=== PATIENT | male | born 1990 | race Caucasian/White ===

== ENCOUNTER 2017-11-08 11:44 | Inpatient (IN) | payer OTHER ==
[~2017-11-08] VITALS: Ht 182.9 cm; Wt 77.1 kg
[~2017-11-08 11:44] MED LIST: CIPRO500 M1 PO; DILAUDID2 MG PO; DOXYCYCLINE HY100 M4 PO; DOXYCYCLINE100 M3 PO; FIORICET 325 MG1 TAB PO; HYDROMORPHONE HC2 MG PO; NAPROSYN500 M1 PO; PEPCID40 MG PO; PERMETHRIN60 GM TOP; VALTREX1000 MG PO; ZOFRAN 4 MG TABL4 MG PO
--- NOTE | 2017-11-08 12:15 | ED PSYCHIATRIC COMPLAINT ---
See Addendum History of Present Illness General Chief Complaint: ETOH/Drug Related Complaint Stated Complaint: ETOH DETOX Source: patient Exam Limitations: no limitations Vital Signs & Intake/Output Vital Signs & Intake/Output Vital Signs Date Time Temp Pulse Resp B/P B/P Pulse O2 O2 Flow FiO2 Mean Ox Delivery Rate 11/08 1831 97.6 101 18 138/79 11/08 1757 97.5 107 18 138/79 97 11/08 1426 121 18 130/78 11/08 1240 98.3 104 20 140/90 11/08 1153 97.2 91 20 145/94 98 Room Air Allergies Coded Allergies: No Known Allergies (07/17/17) Reconcile Medications No Known Home Medications Triage Note: PT REQUEST DETOX FROM ETOH. STATES LAST DRINK 20 MIN [employer]ONDENCE [employer]. DENIES SEIZURES WITH DETOX. STATES HE FEELS "KIND OF" SUICIDAL, DENIES PLAN. PT DENIES HI Triage Nurses Notes Reviewed? yes Onset: Abrupt Duration: day(s): HPI: 27-year-old male with a history of alcoholism comes in requesting detox. He's had some fleeting thoughts of suicide. He reports that previously in the past when he stopped drinking he's had hallucinations in bed shaking. He reports that he punched a wall last name. His girlfriend broke up with him. He denies owning weapons. He admits to some intermittent cocaine use at times. He drinks about a pint of vodka a day 10-12 beers. (Osmel Floyd) Past History Travel History Traveled to [place] past 21 day No Medical History Any Pertinent Medical History? see below for history Neurological: TIC DISORDER EENT: NONE Cardiovascular: NONE Respiratory: asthma Gastrointestinal: NONE Hepatic: NONE Renal: NONE Musculoskeletal: NONE Psychiatric: NONE Endocrine: NONE Blood Disorders: NONE Cancer(s): NONE LOCK TENDER/Reproductive: NONE History of MRSA: No History of VRE: No History of CDIFF: No Tetanus Vaccine: 05/07/17 Surgical History Surgical History: non-contributory Psychosocial History Who do you live with Mother Services at Home None What is your primary language Kyrgyz Tobacco Use: Current Daily Use Daily Tobacco Use Amount/Type: => 5 Cigarettes daily ETOH Use: heavy use Illicit Drug Use: denies illicit drug use Family History Hx Contributory? No (Osmel Floyd) Review of Systems Review of Systems Constitutional: Reports: no symptoms. EENTM: Reports: no symptoms. Respiratory: Reports: no symptoms. Cardiovascular: Reports: no symptoms. GI: Reports: no symptoms. Genitourinary: Reports: no symptoms. Musculoskeletal: Reports: no symptoms. Skin: Reports: no symptoms. Neurological/Psychological: Reports: see HPI. Hematologic/Endocrine: Reports: no symptoms. Immunologic/Allergic: Reports: no symptoms. All Other Systems: Reviewed and Negative (Osmel Floyd) Physical Exam Physical Exam General Appearance: well developed/nourished, mild distress, intoxicated Head: atraumatic Eyes: Bilateral: normal appearance. Ears, Nose, Throat: normal ENT inspection, hearing grossly normal Neck: normal inspection, supple Respiratory: no respiratory distress Cardiovascular: regular rate/rhythm Gastrointestinal: soft, non-tender Extremities: skin abrasion right hand Neurological/Psychiatric: awake Appearance/Memory/Insight: appropriate appearance Behavoir/Eye Contact/Speech: cooperative Thoughts/Hallucinations: no apparent hallucination Skin: intact, normal color, warm/dry SAD PERSONS SAD PERSONS Response Value Male Sex? yes 1 Age <19 or >45 years? yes 1 Depression/Hopelessness? yes 2 Excessive Ethanol/Drug Use? yes 1 Rational Thinking Loss? yes 2 Single//? yes 1 Total 8 SAD PERSONS Done? yes (Osmel Floyd) Progress Differential Diagnosis: dementia, drug intoxication, drug overdose, drug withdrawal, electrolyte abnormality, encephalitis, hypoglycemia, hypothyroidism Plan of Care: Orders Procedure Date/time Status Regular Diet 11/08 D Active Patient Data 11/08 192 Active Discharge Patient 11/[address] in observation 11/08 1621 Active Patient Data 11/08 1621 Active EKG 11/08 1214 Active ED CRISIS PSYCH CONSULT 11/08 1214 Active Continuous Observation Monitor 11/08 1202 Active CIWA 11/08 1202 Active URINE DRUGS OF ABUSE 11/08 1202 Complete ETHANOL 11/08 1202 Complete COMPREHENSIVE METABOLIC PANEL 11/08 1202 Complete CBC WITHOUT DIFFERENTIAL 11/08 1202 Complete Laboratory Tests 11/08/17 1220: Anion Gap 22 H, Estimated GFR > 60, BUN/Creatinine Ratio 12.2, Glucose 84, Calcium 10.1, Total Bilirubin 0.8, AST 30, ALT 24, Alkaline Phosphatase 85, Total Protein 8.4 H, Albumin 5.3 H, Globulin 3.1, Albumin/Globulin Ratio 1.7, CBC w Diff NO MAN DIFF REQ, RBC 5.64, MCV 87.8, MCH 30.1, MCHC 34.3, RDW 13.5, MPV 6.9 L, Gran % 75.5 H, Lymphocytes % 16.9 L, Monocytes % 3.2, Eosinophils % 3.9, Basophils % 0.5, Absolute Granulocytes 9.6 H, Absolute Lymphocytes 2.2, Absolute Monocytes 0.4, Absolute Eosinophils 0.5, Absolute Basophils 0.1, Serum Alcohol 295.0 11/08/17 1217: Urine Opiates Screen < 100.00, Methadone Screen < 40, Barbiturate Screen < 60, Ur Phencyclidine Scrn < 6.00, Amphetamines Screen < 100, U Benzodiazepines Scrn < 85, Urine Cocaine Screen > 1000 H, Urine Cannabis Screen 57.00 H Diagnostic Imaging: Viewed by Me: Radiology Read. Discussed w/RAD: Radiology Read. Radiology Impression: PATIENT: CHAVEZ GONZALEZ PRESENT AGE: 27 PATIENT ACCOUNT NO: [id number] : 91 LOCATION: [facility] ORDERING PHYSICIAN: Osmel ELIZONDO SERVICE DATE: 11/08/17 EXAM TYPE: RAD - XRY-HAND, RIGHT EXAMINATION: XR HAND, RIGHT CLINICAL INFORMATION: Right hand pain COMPARISON: 05/02/2008 TECHNIQUE: PA, lateral, and oblique views of the right hand. FINDINGS: The small avulsion fracture at the ulnar base of the 1st proximal phalanx has healed, with a residual bony protuberance. The bones and soft tissues are otherwise normal. No fracture. Alignment is anatomic. Joint spaces are maintained. No erosions or soft tissue calcifications. IMPRESSION: No acute abnormality. DICTATED BY: Jose Luis Marshall MD DATE/TIME DICTATED:1420 PERSONAL SHOPPER:ZARINA DATE/TIME TRANSCRIBED:11/08/171420 CONFIDENTIAL, DO NOT COPY WITHOUT APPROPRIATE AUTHORIZATION. <Electronically signed in Other Vendor System> SIGNED BY: Jose Luis Marshall MD 11/08/171425 Comments: 11/08/2017 6:26:59 PM Patient has a history of DTs from what he is describing. He meets criteria for inpatient detox. Waiting on case management to get approval from stay for admission. (Osmel Floyd) Departure Departure Disposition: STILL A PATIENT Condition: Stable Clinical Impression Primary Impression: Alcohol withdrawal Secondary Impressions: Depression, Suicidal ideation Referrals: Patient Has No Primary Care Dr (PCP/Family) Departure Forms: Customer Survey General Discharge Information Prescriptions: Current Visit Scripts No Known Home Medications (Osmel Floyd) ED Attending Observation Observation Discharge: I have reevaluated CHAVEZ GONZALEZ on 11/08/17 at 1926. The patient is: (): Stable for discharge ([x]): To be admitted to Nursing Floor (): To be placed in Observation on Nursing Floor (): For transfer to other facility The patient was being observed for [acute alcohol intoxication and the possibility of withdrawal/seizures/DTs] As a result of that observation, I have determined the patient requires admission for imminent alcohol withdrawal. (Vicky CONLEY,Sandip Benson)
[2017-11-08 12:28] LABS: ABSOLUTE BASOPHIL COUNT 0.1 /CUMM (0.0-0.2); ABSOLUTE EOSINOPHIL COUNT 0.5 /CUMM (0.0-0.7); ABSOLUTE GRANULOCYTE CT 9.6 /CUMM (1.4-6.5); ABSOLUTE LYMPH COUNT 2.2 /CUMM (1.2-3.4); ABSOLUTE MONOCYTE COUNT 0.4 /CUMM (0.10-0.60); BASOPHIL % 0.5 % (0.0-2.0); EOSINOPHIL % 3.9 % (0-5); GRANULOCYTE % 75.5 % (42.2-75.2); HEMATOCRIT 49.5 % (42-52); MEAN CORPUSCULAR HGB 30.1 PG (27.0-31.0); MEAN CORPUSCULAR HGB CONC 34.3 G/DL (33.0-37.0); MEAN CORPUSCULAR VOLUME 87.8 FL (80.0-94.0); MEAN PLATELET VOLUME 6.9 FL (7.4-10.4); PLATELET COUNT 356 /CUMM (130-400); RBC DISTRIBUTION WIDTH 13.5 % (11.5-14.5); RED BLOOD CELL CT 5.64 /CUMM (4.70-6.10); WHITE BLOOD CELL COUNT 12.7 /CUMM (4.8-10.8)
[2017-11-08 12:40] VITALS: BP 140/90
[2017-11-08 14:26] VITALS: BP 130/78
--- NOTE | 2017-11-08 14:26 | RADIOLOGY REPORT ---
EXAMINATION: XR HAND, RIGHT CLINICAL INFORMATION: Right hand pain COMPARISON: 05/02/2008 TECHNIQUE: PA, lateral, and oblique views of the right hand. FINDINGS: The small avulsion fracture at the ulnar base of the 1st proximal phalanx has healed, with a residual bony protuberance. The bones and soft tissues are otherwise normal. No fracture. Alignment is anatomic. Joint spaces are maintained. No erosions or soft tissue calcifications. IMPRESSION: No acute abnormality.
[2017-11-08 18:31] VITALS: BP 138/79
--- NOTE | 2017-11-08 19:28 | History & Physical ---
Adiel Fernández MD,[facility] 11/08/171926: General Information and HPI MD Statement: I have seen and personally examined CHAVEZ GONZALEZ and documented this H&P. The patient is a 27 year old M who presented with a patient stated chief complaint of [ALCOHOL DETOX]. Source of Information: patient Exam Limitations: no limitations History of Present Illness: patient is 27 y M with PMH of alcohol abuse, poly drug abuse(marijuana, cocaine and opioids), tourette syndrome and mild asthma presented to the ED requesting for alcohol detox. Patient noted he was dirnking more than for the last week he was drinking more usual and also had one binge drinking. He was drinknig 1 pint of vodka and 12 beers for the last several days with last drink this morning. He noted punching the wall (from anxiety and anger) but he denied any thoughts of harm or suicide (despite ED records, patient noted his was joking). , had admission to [facility] for detox but denied any alcohol related seizure or ICU admission. He started drinking at age 16, he reported occasional cocaine and marijuana use (last taken 2 days ago), but the night intravenous drug using. He noted he was tested for HIV and hepatitis 6-7 months ago which were negative. He reported mild headache, dizziness but no fall, blacking out from drinking ( last one 2-3 days ago, nausea but not vomiting, anxiety with associated mild chest discomfort and shortness of breathing, he also had loose bowel motion usually once a day. Patient was last admitted to [facility] for management of apectic menangitis in 06/2015 but didn't follow with ID or neurologist. Family history significant for alcohol abuse in several members. 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 Exam & Diagnostic Data Last 24 Hrs of Vital Signs/I&O Vital Signs Date Time Temp Pulse Resp B/P B/P Pulse O2 O2 Flow FiO2 Mean Ox Delivery Rate 11/08 1831 97.6 101 18 138/79 11/08 1757 97.5 107 18 138/79 97 11/08 1426 121 18 130/78 11/08 1240 98.3 104 20 140/90 11/08 1153 97.2 91 20 145/94 98 Room Air Intake & Output 11/08 1600 11/08 0800 11/08 0000 Intake Total Output Total Balance Patient 160 lb Weight Weight Reported by Patient Measurement Method Physical Exam General Appearance Alert, Oriented X3, Cooperative, No Acute Distress, anxious Skin skin lesion over right hand Skin Temp/Moisture Exam: Warm/Dry HEENT Atraumatic, EOMI, Mucous Membr. moist/pink Cardiovascular Normal S1, Normal S2, tachicardic Lungs Clear to Auscultation Abdomen Normal Bowel Sounds, Soft, mild umblical tenderness in deep palpation Neurological Normal Speech, Strength at 5/5 X4 Ext, Cranial Nerves 3-12 NL, tremor Extremities No Edema Last 24 Hrs of Labs/Tobias: Laboratory Tests 11/08/17 1220: Anion Gap 22 H, Estimated GFR > 60, BUN/Creatinine Ratio 12.2, Glucose 84, Calcium 10.1, Total Bilirubin 0.8, AST 30, ALT 24, Alkaline Phosphatase 85, Total Protein 8.4 H, Albumin 5.3 H, Globulin 3.1, Albumin/Globulin Ratio 1.7, Amylase 44, Lipase 108, CBC w Diff NO MAN DIFF REQ, RBC 5.64, MCV 87.8, MCH 30.1 , MCHC 34.3, RDW 13.5, MPV 6.9 L, Gran % 75.5 H, Lymphocytes % 16.9 L, Monocytes % 3.2, Eosinophils % 3.9, Basophils % 0.5, Absolute Granulocytes 9.6 H, Absolute Lymphocytes 2.2, Absolute Monocytes 0.4, Absolute Eosinophils 0.5, Absolute Basophils 0.1, Serum Alcohol 295.0 11/08/17 1217: Urine Opiates Screen < 100.00, Methadone Screen < 40, Barbiturate Screen < 60, Ur Phencyclidine Scrn < 6.00, Amphetamines Screen < 100, U Benzodiazepines Scrn < 85, Urine Cocaine Screen > 1000 H, Urine Cannabis Screen 57.00 H, Urine Color YEL, Urine Clarity CLEAR, Urine pH 6.0, Ur Specific [place] <= 1.005, Urine Protein NEG, Urine Ketones NEG, Urine Nitrite NEG, Urine Bilirubin NEG, Urine Urobilinogen 0.2, Ur Leukocyte Esterase NEG, Ur Microscopic SEDIMENT EXAMINED, Ur Epithelial Cells RARE, Urine Bacteria RARE H, Urine Hemoglobin TRACE-LYSED H, Urine Glucose NEG Assessment/Plan Assessment: 27 y M presented requesting for alcohol detox PMH: alcohol abuse, poly drug abuse(marijuana, cocaine and opioids), tourette syndrome and mild asthma VS, Ph Ex at admission: Not significant, no fever, BP 145/94, CT 94, RR 20 EKG: NSR, CT 100-110, axis normal, no ST T change compared to previous Labs at admission: WBC 12.7, otherwise insignificant, BEP insignificant, AG 22, bicarb 99, toxicology, cocaine and cannabis positive, serum alcohol 275 Imagings at admission: Hand Xray: negative Patient was admitted to GM floor for management of following conditions: Alcohol withdrawal Anion GAP Metabolic acidosis -Admit to general medicine floor -Vital sign -Ativan standing dose, Ativan IV CIWA protocol -Multivitamin, by mouth multivitamin, thiamine, folic acid -Psych and social work consult -Note sitter for now as patient denied suicidal ideation - lactic acid Abdominal pain Tenderness umbilical, pancreatitis less likely we will rule out -Lipase, -Urinalysis Anxiety -Psych consult in a.m. Smoking -Nicotine patch DVT prophylaxis, Lovenox, ALPS FC regular diet As Ranked By This Provider Problem List: 1. Alcohol intoxication 2. Alcohol withdrawal Core Measures/Misc (06/02) Acute Coronary Syndrome ACS Diagnosis: No Congestive Heart Failure Congestive Heart Failure Diagnosis No Cerebrovascular Accident CVA/TIA Diagnosis: No VTE (View Protocol) VTE Risk Factors Other No Mechanical VTE Prophylaxis d/t N/A MechProphylax Ordered No VTE Pharm Prophylaxis d/t NA PharmProphylax ordered Sepsis (View protocol) Sepsis Present: No Helder CONLEY, [facility] 11/08/17 2018: Attending MD Review Statement Attending Statement Attending MD Statement: examined this patient, discuss w/resident/PA/COMMERCIAL SHEET METAL FOREMAN, agreed w/resident/PA/COMMERCIAL SHEET METAL FOREMAN, reviewed images, amended to note Attending Assessment/Plan: 27 yo M with h/o Tourette syndrome, childhood asthma, severe anxiety, polysubstance abuse, alcohol dependence, [facility], no h/o withdrawal seizures or DT's, is here for alcohol detox. He has been drinking since age 16, and has been binge drinking for past 1 week. Drinks 1 pint of Vodka and 12 pack beers. Last drink this AM. He had passive SI and made some statements when he was intoxicated, but now denies SI or HI. He has punched into the wall due to his anger. He c/o chest discomfort and dyspnea associated with anxiety. Nausea+, no vomiting. Mid abdominal discomfort, diarrhea+, no urinary symptoms. No fever/ chills. Mild headache. He reports passing out when he is intoxicated. He was last admitted to [facility] 2014 for aseptic meningitis. Vitals stable except for mild tachycardia. Exam: Multiple bruises to knuckles of both hands, tremors+, dry mucous membranes, Abd: soft, mid abdominal discomfort. Labs: WBC 12.7, bicarb 19, AG 22. UA clear. Utox positive for cocaine and cannabis. Alcohol level 295. Hand Xray: small avulsion fracture at ulnar base of 1st proximal phalanx has healed with residual bony protuberance. EKG: sinus rhythm, peaked Twaves II, V3- 4 (old). Assessment and plan: 1. Alcohol withdrawal 2. Severe anxiety 3. Tobacco dependence 4. Leukocytosis likely reactive 5. Anion gap metabolic acidosis 2/2 alcohol use - Admit to General medicine - Fall precautions - CIWA protocol, IV ativan per CIWA - PO ativan 2 mg Q6 - Psych and Social work consult - Smoking cessation counseling, nicotine patch - Banana bag, PO MVI, thiamine, folic acid - Check lipase, urinalysis, lactic acid - No need for sitter, as patient denies suicidal ideation. DVT ppx Lovenox. Full code. Ayaan Coello MD 11/09/17 0208: Resident Review Statement Resident Statement: examined this patient, discussed with sports management internship, agreed with sports management internship, reviewed EMR data (avail), discussed with nursing, discussed with case mgmt, reviewed images, amended to note Other Findings: 27-year-old male with past medical history of alcohol abuse, last use this morning, polysubstance abuse including marijuana, cocaine, opiates, tourette syndrome, mild asthma, presented to the emergency department requesting for alcohol detoxification for enterically. According to the patient, he has been drinking alcohol for the past 1 week or more, including binge drinking, 1 pint of vodka and 12 beers for the last several days. He also mentioned that he was punching the wall, complained of "anxiety" and "anger" , but did not have any intention to harm himself or others. Patient has history of aseptic meningitis in 2015 but didn't follow-up with ID or neurologist. Patient denies having alcohol-related seizures or any history of delirium tremens. Physical examination, labs, imaging has shown above. Patient is being admitted in general medical floor for the management of following issues: # Alcohol abuse, alcohol detoxification, polysubstance abuse Patient's alcohol abuse, substance abuse appears to be a chronic problem, therefore the patient presented in the ED for voluntarily to stop using them. Patient received some doses of benzodiazepines in the emergency department. He will be managed for CIWA protocols, with benzodiazepines, will receive IV banana bag, one time dose of 200 mg of thiamine, and 100 mg daily to follow, 1 mg folic acid daily, and a multivitamin daily. Psychiatry and social work consult has been placed given his mental health issues, and his addiction issues. We are not continuing patient's safety monitor/continuous observation monitor for him as he repeatedly mentioned that he does not have any intention to harm himself or others to the admitting team. He also mentioned that she was intoxicated at the time of presentation to the ED, during which time he might have said something that he doesn't intend to do. In the morning, his CIWA scores needs to be assessed, and might need further tapering of his benzodiazepines. # Diet heart healthy diet #DVT prophylaxis subcutaneous enoxaparin #Full code.
--- NOTE | 2017-11-08 20:24 | Admission Certification ---
Admission Certification Certification Statement - As attending physician, I certify that at the time of - admission, based on clinical presentation, severity of - symptoms, need for further diagnostic testing and - therapeutic interventions, and risk of adverse outcomes - without in-hospital treatment, in my clinical assessment, - this patient requires an acute hospital stay for a minimum - of two nights or longer. I have also considered psychsocial - factors such as support system, advanced age, financial - issues, cognitive issues, and failed out-patient treatments, - past re-admission history, safety of patient, and lack of - compliance as applicable. Specific rationale supporting this admission is: Alcohol withdrawal, severe anxiety.
[2017-11-09] VITALS (7 sets, daily range): BP systolic 117–150; BP diastolic 68–90
--- NOTE | 2017-11-09 14:26 | Cons- Psychiatry ---
Psychiatric Consult Date of Consult: 11/09/17 Reason for Consult: Alcohol use disorder History of Present Illness: Cecil is a 27-year-old recently employed, unstably domiciled, single man with 10 year history of early onset severe alcohol use disorder including multiple previous inpatient substance use treatment stays who presented to [facility] ER yesterday evening requesting assistance for alcohol use disorder, including alcohol detox. Currently drinks daily, 1-3 pints every day on top of ~8 beers. Believes that over the past 10 years of drinking, has only had approximately 2 months of sobriety. 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 He is currently living with his mother and brother in [place], however, mom and brother are soon moving to [place] to a living situation which does not have room for him. This will again leave him homeless, and he is unable to identify possible living situation at this time. He also has recently undergone a breakup with a female relationship which he believes was due to a confrontation that they had while he was severely intoxicated recently. He denies using other substances when I asked him during my interview, though per notes he uses cocaine and marijuana occasionally. Reports that if he does not drink, he has severe generalized anxiety symptoms "I just get anxious and worried about everything ". He notes that he has previously been trialed on multiple medications "nothing seems to work. Nobody ever wants to give me benzodiazepines which do seem to work ". He is currently on probation, and states that his ordnance corps officer in [place] has arranged for him to be treated at the [facility] intensive outpatient program, which she is looking forward to doing. He also reports some depressed mood and demoralization, however denies anhedonia , denies neurovegetative symptoms, and denies suicidal or homicidal ideation. He also denies symptoms consistent with acute zeenat, psychosis, or post dramatic stress disorder. He is unable to describe his sleep, as he reports he essentially drinks to excess and passes out every night. Previous psychiatric treatment notable for trials of Prozac, Zoloft, and Paxil. Aside from these 3 medications however he has not trialed medications of different classes, including serotonin norepinephrine reuptake inhibitors, also has not trialed Wellbutrin, mirtazapine, has trialed Seroquel "during rehabilitation ", "it didn't really work for me ", and has never been trialed on mood stabilizers. No other history of neuroleptics. Has not trialed Vistaril. My discussion with him regarding these medications however was met with his response "I don't want to try anything that is as can be trial and error. I don 't get why people can't just put me on a benzo ". He was however receptive to the idea of starting naltrexone, and we had a lengthy discussion regarding the role of alcohol use disorder pharmacotherapy in the treatment of alcohol use disorder. Family history is strongly positive for alcohol use disorder in both parents as well as multiple siblings Allergies: Coded Allergies: No Known Allergies (07/17/17) Current Medications: Takes no outpatient psychotropic medication Past History Past Medical History Neurological: TIC DISORDER EENT: NONE Cardiovascular: NONE Respiratory: asthma Gastrointestinal: NONE Hepatic: NONE Renal: NONE Musculoskeletal: NONE Psychiatric: alcohol dependence, anxiety, substance abuse Endocrine: NONE Blood Disorders: NONE Cancer(s): NONE ANGLESMITH/Reproductive: NONE Past Surgical History Surgical History: non-contributory Psychosocial History Strengths/Capabilities: employed Physical Limitations (Interventions): none known Psychiatric Treatment History Psych Treatment Psychiatric Treatment Yes Inpatient Treatment No Outpatient Treatment Yes Location of Treatment [facility] IOP as adolescent. Reason for Treatment Cannot recall Dates of Treatment Patient was ~16 years old Diagnosis: unk Risk Factors: high anxiety/distress, substance abuse, poor impulse control, male Substance Use/Abuse History Drug Use/Abuse Substances Used/Abused Yes Substance Used/Abused Marijuana First Use Began drinking alcohol consistently age 17 Last Used Prior to admission How much used/taken 1-3 pints liquor + ~8 beers daily How often Daily For how long Has used heavily since age 17. Reports 2 mos of sobriety during past 10 yrs Substance Abuse Treatment Substance Abuse Treatment Past Substance Abuse [place] Yes Inpatient Treatment Yes Outpatient Treatment Yes Location of Treatment [facility] [place] Reason for Treatment Severe alcohol use disorder Dates of Treatment Unknown Response to Treatment Very prompt relapse Assessment/Plan Mental Status Orientation: Person, Place, Situation Mental Status Exam: Borderline groomed man with numerous tattoos on hands and trunk, moderately tremulous, limited eye contact and difficulty maintaining eye contact , no psychomotor agitation or retardation, speech within normal limits, mood "anxious ", affect was anxious and mildly labile, mildly irritable, thought process was logical and linear, content without suicidal or homicidal ideation, denies perceptual disturbances, cognition was alert, oriented to person, place, date, situation, attention was intact, naming was intact, immediate and delayed recall is intact, abstractions were preserved, intelligence appears average, insight and judgment was limited. 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 Also using cocaine and cannabis. At this time he does appear to be in mild alcohol withdrawal as evidenced by tremulousness, mild tachycardia, and mild irritability. It is certainly possible that he has a co-occurring generalized anxiety disorder, though this is unable to be differentiated at this time in the context of severe ongoing alcohol use. He demonstrates limited ability to cope with his psychosocial stressors, and has difficulty understanding risk/benefit concerns regarding the use of benzodiazepines to treat anxiety in an individual with severe alcohol use disorder. Can best serve this patient by trying to link him to a higher level of care for substance use disorder such as [facility], as well as social work intervention for assistance with his tumultuous living situation. Recommendations: -This patient is treatment seeking, denies suicidal or homicidal ideation, is future oriented, and his presentation does not suggest imminent risk to himself or others. He is not in need of acute psychiatric hospitalization, nor do I believe he requires a sitter during his inpatient medical hospitalization. -Please continue to treat alcohol withdrawal as you are doing. -Would recommend initiation of naltrexone 50 mg by mouth daily to treat alcohol use disorder -For anxiety while inpatient, suggest the following options: Vistaril 50 mg every 4-6 hours when necessary OR gabapentin 300 mg every 6 hours when necessary OR Seroquel 50 mg every 6 hours when necessary -Agree with social work consult, social work or primary team may help liaison with the patient's ordnance corps officer with goal of discharge to [facility] intensive outpatient program for substance use treatment -Would not discharge this patient on benzodiazepines aside from completion of an alcohol withdrawal taper -Thank you for this consultation.
--- NOTE | 2017-11-09 15:44 | PN- Gen Med ---
Assessment/Plan Medical Problem List: 1. Alcohol abuse 2. Marijuana use 3. Cocaine abuse 4. High anion gap metabolic acidosis Plan: 27 yo M with h/o Tourette syndrome, childhood asthma, severe anxiety, polysubstance abuse, alcohol dependence, [facility] no h/o withdrawal seizures or DT's, is here for alcohol detox. Last drink was one night ago. Patient did have suicidal ideations when he came in although denies anything right now. Checked lipase and lactic acid are within normal limits Plan - Amnion gap metabolic acidosis is resolving - Will follow psychiatry recommendations - CIWA protocol, IV ativan per CIWA - PO ativan 2 mg Q6 - Smoking cessation counseling, nicotine patch - Banana bag, PO MVI, thiamine, folic acid - No need for sitter, as patient denies suicidal ideation. - Patient should not be discharged on benzodiazepines, should complete taper in hospital - Initiated naltrexone to treat treat alcohol use disorder DVT ppx Lovenox. Full code. Subjective Follow-up For: Alcohol use disorder and polysubstance abuse Subjective: Patient is anxious. He acknowledges that he has alcohol substance abuse disorder and is ready to undergo treatment. U tox reveals evidence of cocaine and cannabis abuse. Review of Systems Constitutional: Reports: see HPI. Cardiovascular: Reports: palpitations. Respiratory: Reports: no symptoms. Gastrointestinal: Reports: no symptoms. Genitourinary: Reports: no symptoms. Musculoskeletal: Reports: no symptoms. Neurological/Psychological: Denies: see HPI. Objective Last 24 Hrs of Vital Signs/I&O Vital Signs Date Time Temp Pulse Resp B/P B/P Pulse O2 O2 Flow FiO2 Mean Ox Delivery Rate 11/09 1346 98.3 100 20 136/81 11/09 1343 98.3 81 20 136/81 96 Room Air 11/09 1011 98.0 101 18 117/75 11/09 1011 98.1 101 18 117/75 98 Room Air 11/09 0936 98.1 95 18 135/77 95 Room Air 11/09 0730 98.0 71 18 134/70 11/09 0626 98.0 71 18 134/70 97 Room Air 11/09 0417 98.1 71 16 100/70 97 Room Air 11/09 0230 98.0 68 18 108/70 96 Room Air 11/09 0122 78 16 130/78 11/09 0027 98.2 78 18 130/78 95 Room Air 11/08 2254 98.8 86 18 120/68 96 11/08 1831 97.6 101 18 138/79 11/08 1757 97.5 107 18 138/79 97 Intake & Output 11/09 1600 11/09 0800 11/09 0000 Intake Total 120 Output Total Balance 120 Intake, Oral 120 Physical Exam General Appearance: Alert, Oriented X3, Cooperative HEENT: Atraumatic, PERRLA Cardiovascular: Regular Rate, Normal S1, Normal S2 Lungs: Clear to Auscultation Abdomen: Soft Neurological: Normal Speech, Normal Tone, Sensation Intact Extremities: No Cyanosis, No Edema Current Medications: Current Medications Sig/Michi Start time Last Medication Dose Route Stop Time Status Admin Cyanocobalamin/ 1 BAG ONCE ONE 11/08 2300 DC 11/09 Thiamine/Pyridoxine IV 11/09 0659 0024 Sodium Chloride 1,000 ML Enoxaparin Sodium 0 .STK-MED ONE 11/09 1002 DC SC Enoxaparin Sodium 40 MG DAILY 11/09 1000 AC 11/09 SC 1010 Folic Acid 0 .STK-MED ONE 11/09 1002 DC PO Folic Acid 1 MG DAILY 11/09 1000 AC 11/09 PO 1010 Hydroxyzine HCl 50 MG Q6-PRN PRN 11/09 1545 UNVr PO Lorazepam 0 .STK-MED ONE 11/09 1321 DC PO Lorazepam 0 .STK-MED ONE 11/09 0652 DC PO Lorazepam 2 MG Q6 11/08 2359 AC 11/09 PO 1351 Lorazepam 0 .STK-MED ONE 11/08 2334 DC PO Lorazepam 0 Q1P PRN 11/08 2200 AC IV Lorazepam 0 .STK-MED ONE 11/08 1840 DC PO Lorazepam 0 .STK-MED ONE 11/08 1728 DC PO Multivitamins 0 .STK-MED ONE 11/09 1002 DC PO Multivitamins 1 TAB DAILY 11/09 1000 AC 11/09 PO 1010 Non-Formulary 0 SEE ADMIN CRITERIA 11/09 1545 UNVr Medication ANY Thiamine HCl 0 .STK-MED ONE 11/09 1001 DC PO Thiamine HCl 100 MG DAILY 11/09 1000 AC 11/09 PO 1010 Thiamine HCl 0 .STK-MED ONE 11/08 2334 DC PO Thiamine HCl 200 MG ONCE ONE 11/08 2300 DC 11/08 PO 11/08 2301 2332 Last 24 Hrs of Labs/Mics: Laboratory Tests 11/09/17 0520: Lactic Acid 1.1 11/09/17 0520: Anion Gap 9, Estimated GFR > 60, BUN/Creatinine Ratio 18.8 11/08/17 2311: Lactic Acid Cancelled
[2017-11-10 02:30] VITALS: BP 100/68
[2017-11-10 06:33] VITALS: BP 120/92
--- NOTE | 2017-11-10 09:02 | PN- Housestaff ---
See Addendum Subjective Follow-up For: Cocaine, EtOH Subjective: No overnight events. Patient denies anxiousness, tremours or any pain. Wondering about medications he'll be prescribed going home. Review of Systems Constitutional: Reports: no symptoms. EENTM: Reports: no symptoms. Cardiovascular: Reports: no symptoms. Respiratory: Reports: no symptoms. Gastrointestinal: Reports: no symptoms. Genitourinary: Reports: no symptoms. Musculoskeletal: Reports: no symptoms. Skin: Reports: no symptoms. Neurological/Psychological: Reports: no symptoms. Hematologic/Endocrine: Reports: no symptoms. Immunologic/Allergic: Reports: no symptoms. Objective Last 24 Hrs of Vital Signs/I&O Vital Signs Date Time Temp Pulse Resp B/P B/P Pulse O2 O2 Flow FiO2 Mean Ox Delivery Rate 11/10 0633 97.6 70 16 120/92 97 Room Air 11/10 0230 97.9 74 16 100/68 97 Room Air 11/09 2207 98.0 74 20 122/70 97 Room Air 11/09 1745 98.1 92 18 150/68 11/09 1710 98.5 84 20 130/90 96 Room Air 11/09 1637 98.2 92 20 152/67 98 Room Air 11/09 1346 98.3 100 20 136/81 11/09 1343 98.3 81 20 136/81 96 Room Air 11/09 1011 98.0 101 18 117/75 11/09 1011 98.1 101 18 117/75 98 Room Air 11/09 0936 98.1 95 18 135/77 95 Room Air Intake & Output 11/10 1600 11/10 0800 11/10 0000 Intake Total 600 Output Total 300 Balance 600 -300 Intake, Oral 600 Output, Urine 300 Patient 77.111 kg Weight Weight Estimated Measurement Method Physical Exam General Appearance: Alert, Oriented X3, Cooperative, No Acute Distress Skin: multiple tattoos and scars Cardiovascular: Regular Rate, Normal S1, Normal S2 Lungs: Clear to Auscultation Abdomen: No Tenderness, No Hepatospenomegaly, No Masses Neurological: Normal Speech Extremities: No Edema, Normal Pulses, No Tenderness/Swelling Current Medications: Current Medications Sig/Michi Start time Last Medication Dose Route Stop Time Status Admin Enoxaparin Sodium 0 .STK-MED ONE 11/09 1002 DC SC Enoxaparin Sodium 40 MG DAILY 11/09 1000 AC 11/09 SC 1010 Folic Acid 0 .STK-MED ONE 11/09 1002 DC PO Folic Acid 1 MG DAILY 11/09 1000 AC 11/09 PO 1010 Hydroxyzine HCl 50 MG Q6-PRN PRN 11/09 1545 AC 11/10 PO 0549 Lorazepam 0 .STK-MED ONE 11/09 1321 DC PO Lorazepam 2 MG Q6 11/08 2359 AC 11/10 PO 0549 Lorazepam 0 Q1P PRN 11/08 2200 AC 11/10 IV 0556 Melatonin 5 MG AT BEDTIME 11/09 2200 AC 11/09 PO 2326 Multivitamins 0 .STK-MED ONE 11/09 1002 DC PO Multivitamins 1 TAB DAILY 11/09 1000 AC 11/09 PO 1010 Naltrexone HCl 50 MG DAILY 11/09 1545 AC 11/09 PO 1702 Nicotine 21 MG DAILY 11/09 1852 AC 11/09 TOP 2330 Thiamine HCl 0 .STK-MED ONE 11/09 1001 DC PO Thiamine HCl 100 MG DAILY 11/09 1000 AC 11/09 PO 1010 Assessment/Plan Assessment: 27 yo M with h/o Tourette syndrome, childhood asthma, severe anxiety, polysubstance abuse, alcohol dependence, last withdrawal was Aug 2017 at [facility], no h/o withdrawal seizures or DT's, is here for alcohol detox. Problem List: 1. AGMA 2. EtOH abuse 3. Polysubstance abuse Plan - Will follow psychiatry recommendations - ANNEWA protocol, IV ativan per JOEY. CIWA scoring 4-8 this AM - PO ativan 2 mg Q6 - Smoking cessation counseling, nicotine patch - No need for sitter, as patient denies suicidal ideation. - Continue psych meds, follow recs - Will need outpatient follow up and referral for PCP DVT ppx Lovenox. Full code. Problem List: 1. Alcohol withdrawal Pain Ratin Pain Location: no Pain Goal: Remain pain free Pain Plan: see a/p Tomorrow's Labs & Rationales: bep
[2017-11-10 11:07] VITALS: BP 130/90
--- NOTE | 2017-11-10 12:11 | Patient Discharge Instructions ---
Discharge Instructions General Discharge Information You were seen/treated for: ALCOHOL DETOX Special Instructions: - you are leaving against medical advice. please be advised that your condition if left untreated can be resulted to severe complications such as seziure or even Diet Continue normal diet: Yes Activity Full Activity/No Limits: Yes ( TOLERATED) Acute Coronary Syndrome Inclusion Criteria At DC or during hospital stay patient has or had the following: ACS DIAGNOSIS No Discharge Core Measures Meds if any: Prescribed or Continued at Discharge Meds if any: NOT Prescribed or Continued at Discharge Congestive Heart Failure Inclusion Criteria At DC or during hospital stay patient has or had the following: CHF DIAGNOSIS No Discharge Core Measures Meds if any: Prescribed or Continued at Discharge Meds if any: NOT Prescribed or Continued at Discharge Cerebrovascular accident Inclusion Criteria At DC or during hospital stay patient has or had the following: CVA/TIA Diagnosis No Discharge Core Measures Meds if any: Prescribed or Continued at Discharge Meds if any: NOT Prescribed or Continued at Discharge Venous thromboembolism Inclusion Criteria VTE Diagnosis No VTE Type NONE VTE Confirmed by (Test) NONE Discharge Core Measures - Per Current guidelines, there needs to be overlap - treatment for the first 5 days of Warfarin therapy. - If discharged on Warfarin prior to 5 days of - overlap therapy, the patient will need to be - assessed for post discharge needs including - *Post discharge parental anticoagulation - *Warfarin and/or parental anticoagulation education - *Follow up date to check INR post discharge At least 5 days overlap therapy as Inpatient No Meds if any: Prescribed or Continued at Discharge Note: Overlap Therapy is Warfarin and Anticoagulant Meds if any: NOT Prescribed or Continued at Discharge
--- NOTE | 2017-11-10 12:12 | Event Note ---
Event Note Event Note: patient requested to leave AMA.it was explained to him that leaving AGAINST MEDICAL ADVICE may result in worsening of his medical condition and possible . Patient acknowledged this and signed the appropriate paperwork. I have spoken to his bother Jarad as well and relayd the information.attending was also present during the conversation with the patient.
--- NOTE | 2017-11-11 06:44 | Discharge Summary ---
Visit Information Visit Dates Admission Date: 11/08/17 Discharge Date: 11/10/17 Hospital Course Course Attending Physician: Vicky CONLEY,Sandip Benson Primary Care Physician: Patient Has No Primary Care Dr Hospital Course: Patient is 27 y M with PMH of alcohol abuse, poly drug abuse (marijuana, cocaine and opioids), tourette syndrome and mild asthma presented to the ED requesting for alcohol detox. On 11/10/2017, the patient decided to leave AGAINST MEDICAL ADVICE. It was explained to him that leaving AGAINST MEDICAL ADVICE may result in worsening of his medical condition and possible . Patient acknowledged this and signed the appropriate paperwork. Admission Data: Vitals stable except for mild tachycardia. Exam: Multiple bruises to knuckles of both hands, tremors+, dry mucous membranes, Abd: soft, mid abdominal discomfort. Labs: WBC 12.7, bicarb 19, AG 22. UA clear. Utox positive for cocaine and cannabis. Alcohol level 295. Hand Xray: small avulsion fracture at ulnar base of 1st proximal phalanx has healed with residual bony protuberance. EKG: sinus rhythm, peaked Twaves II, V3- 4 (old). He was admitted to general medicine and treated for following problems: 1. EtOH abuse 2. Polysubstance abuse 3. Anion gap metabolic acidosis 4. Hand pain #EtOH/Polysubstance abuse: Patient bruit presented requesting alcohol detox and urine toxicology was positive for marijuana, cocaine. He was placed on CIWA protocol, multivitamins, and given IV lorazepam. The patient denied suicidal ideation. Psychiatry was consulted and their recommendations were followed. Social work was also consulted. However, on 11/10/2017, the patient decided to leave AGAINST MEDICAL ADVICE. It was explained to him that leaving AGAINST MEDICAL ADVICE may result in worsening of his medical condition and possible . Patient acknowledged this and signed the appropriate paperwork. #Anion gap metabolic acidosis: Patient presented with anion gap metabolic acidosis, likely secondary to alcohol use. This corrected with fluid hydration. #Hand pain: Patient complained of right hand pain. X-ray showed no acute abnormality. Allergies: Coded Allergies: No Known Allergies (07/17/17) Disposition Summary Disposition Principal Diagnosis: 1. EtOH abuse Additional Diagnosis: 2. Polysubstance abuse 3. Anion gap metabolic acidosis 4. Hand pain Discharge Disposition: left against medical adv Discharge Instructions General Discharge Information Code Status: Full Code Patient's Diet: Regular diet Patient's Activity: As tolerated Follow-Up Instructions/Appts: Please take all medications as directed. Please follow-up with primary care and psychiatry. Please abstain from alcohol and recreational drug use. Copies To: Solomon CONLEY PHD,Malachi Han
== END 2017-11-10 12:45 | disposition left against medical advice (07) | DRG 770 ==
LOC: ERH 11:44 → ERHI 16:21 → 2NA 16:21 → ERHI 16:21 → EDBEDREQ 22:02 → ENRESERV 11-09 15:48 → ENTRNSPT 11-09 16:44 → EDTRNSPTSTS 11-09 16:58 → EDTRNSPT 11-09 16:58 → 2NA 11-09 17:03 → EDTRNSPT 11-09 17:15 → CMPTRNSPT 11-09 18:24 → ENPENDDIS 11-10 12:19 → 2NA 11-10 12:45
PROVIDERS: Physician Assistant Medical
DX: F10.239 Alcohol dependence with withdrawal, unspecified (principal); E87.2 Acidosis; M79.643 Pain in unspecified hand; F14.10 Cocaine abuse, uncomplicated; F12.10 Cannabis abuse, uncomplicated; F11.10 Opioid abuse, uncomplicated; F95.2 Tourette's disorder; J45.909 Unspecified asthma, uncomplicated; F41.9 Anxiety disorder, unspecified; F17.200 Nicotine dependence, unspecified, uncomplicated; D72.829 Elevated white blood cell count, unspecified
CPT/HCPCS: 2NASP; ERO; 73130-RT; 80307; 81001; 82436; 93005; 93010; G0480; J1650; J3490

== ENCOUNTER 2018-01-30 20:19 | Emergency (ER) | payer OTHER ==
[~2018-01-30] VITALS: Ht 182.9 cm; Wt 86.2 kg
[2018-01-30 20:33] VITALS: BP 125/80
[2018-01-30] MEDS ORDERED: IBUPROFEN800 M1 PO (20:57)
[2018-01-30] MEDS ORDERED: PREDNISONE50 M1 PO (20:57)
[2018-01-30] MEDS ORDERED: VALTREX1000 MG PO (20:57)
--- NOTE | 2018-01-30 20:58 | ED GENERAL ADULT ---
History of Present Illness General Chief Complaint: Abdominal Pain/Flank Pain Stated Complaint: R SIDE RIB PAIN Source: patient Exam Limitations: no limitations Vital Signs & Intake/Output Vital Signs & Intake/Output Vital Signs Date Time Temp Pulse Resp B/P B/P Pulse O2 O2 Flow FiO2 Mean Ox Delivery Rate 01/30 2033 98.6 101 16 125/80 97 Room Air ED Intake and Output 01/31 0000 01/30 1200 Intake Total Output Total Balance Patient 190 lb Weight Weight Estimated Measurement Method Allergies Coded Allergies: No Known Allergies (07/17/17) Reconcile Medications Ibuprofen 800 MG TABLET 1 TAB PO TID pain Prednisone 50 MG TABLET 1 TAB PO DAILY shingles Valacyclovir HCl (Valtrex) 1,000 MG TABLET 1 TAB PO TID shingles Triage Note: RECEIVED 27 YO MALE C/O RIGHT RIB CAGE AREA PAIN X ONE WEEK. PT DENIES INJURY OR TRAUMA. PT IS A SMOKER BUT HAS NOT BEEN COUGHING MORE THAN NORMAL. Triage Nurses Notes Reviewed? yes Onset: Abrupt Duration: week(s): (1) Timing: recent history Injury Environment: home HPI: 27-year-old male comes into the emergency room with complaints of right-sided rib pain has been going on for about a week. Patient reports that he also has a rash now that's been on his chest for the last couple days. Denies any fever chills vomiting. Patient reports sometimes he gets short of breath because he smokes. Denies any cough. Denies any fever chills. (Osmel Floyd) Past History Travel History Traveled to [place] past 21 day No Medical History Any Pertinent Medical History? 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 No (Osmel Floyd) Review of Systems Review of Systems Constitutional: Reports: no symptoms. EENTM: Reports: no symptoms. Respiratory: Reports: no symptoms. Cardiovascular: Reports: no symptoms. GI: Reports: no symptoms. Genitourinary: Reports: no symptoms. Musculoskeletal: Reports: see HPI. Skin: Reports: see HPI. Neurological/Psychological: Reports: no symptoms. Hematologic/Endocrine: Reports: no symptoms. Immunologic/Allergic: Reports: no symptoms. All Other Systems: Reviewed and Negative (Osmel Floyd) Physical Exam Physical Exam General Appearance: well developed/nourished, alert, awake Head: atraumatic Eyes: Bilateral: normal appearance. Ears, Nose, Throat: normal ENT inspection, hearing grossly normal Neck: normal inspection Respiratory: no respiratory distress Back: normal range of motion, RASH, SEE BELOW Extremities: normal range of motion Neurologic/Psych: awake, alert, oriented x 3 Skin: Papular vesicular rash in dermatomal distribution extending on the right side of the chest extending to the mid back and mid chest Core Measures ACS in differential dx? No CVA/TIA Diagnosis: No Sepsis Present: No Sepsis Focused Exam Completed? No (Osmel Floyd) Progress Differential Diagnoses I considered the following diagnoses in my evaluation of the patient: Shingles, muscle strain, contact dermatitis, Plan of Care: 01/30/2018 10:14:34 PM Patient has a rash consistent with shingles. Patient treated symptomatically. Return if any other concerns. Initial ED EKG: none (Osmel Floyd) Departure Departure Disposition: HOME OR SELF CARE Condition: Stable Clinical Impression Primary Impression: Shingles Referrals: Patient Has No Primary Care Dr (PCP/Family) Additional Instructions: Take Valtrex, prednisone, and ibuprofen as prescribed. Follow-up with primary care doctor. Avoid contact with name and baby is alert elderly people. Rash is contagious until it crusted over. Please go over all results of today's visit with your primary care doctor. Contact your primary care doctor to let them know you were here in the emergency room. There may be nonspecific findings which may not be related to your visit today here in the emergency room but may require further evaluation and chronic monitoring by your primary care doctor. If you had a laceration today the chance of foreign body always remains. You should follow-up with your primary care doctor for recheck in 3-5 days for a wound check. If you had an x-ray done there is a chance that a fracture could have been missed on initial read and you should follow-up with your primary care doctor for repeat x-rays if symptoms persist. If your blood pressure was elevated here in the emergency room please have rechecked by hyour primary care doctor within the next 48. If you were prescribed a narcotic here in the emergency room or any type of controlled substances you're not allowed to drive while taking this medication or operate any type of heavy machinery. Narcotics can make you feel lightheaded dizziness nausea and can cause constipation. You may need to machine operator hop picker a stool softener. Thank you for choosing [facility] emergency room. Please return to the emergency room immediately if you have any other concerns worsening of symptoms. Departure Forms: Customer Survey General Discharge Information Prescriptions: Current Visit Scripts Valacyclovir HCl (Valtrex) 1 TAB PO TID #21 TAB Prednisone 1 TAB PO DAILY #5 TAB Ibuprofen 1 TAB PO TID #30 TAB (Osmel Floyd) PA/REFERRAL COORDINATOR Co-Sign Statement Statement: ED Attending supervision documentation- I saw and evaluated the patient. I have also reviewed all the pertinent lab results and diagnostic results. I agree with the findings and the plan of care as documented in the PA's/REFERRAL COORDINATOR's documentation. x I have reviewed the ED Record and agree with the PA's/REFERRAL COORDINATOR's documentation. [] Additions or exceptions (if any) to the PAs/REFERRAL COORDINATOR's note and plan are summarized below: [] (Melissa CONLEY,Don) Critical Care Note Critical Care Note Critical Care Time: non-applicable (Osmel Floyd)
== END 2018-01-30 21:08 ==
LOC: ERH 20:19
DX: B02.9 Zoster without complications (principal)

== ENCOUNTER 2018-02-28 18:31 | Inpatient (IN) | payer OTHER ==
[~2018-02-28] VITALS: Ht 182.9 cm; Wt 87.5 kg
[~2018-02-28 18:31] MED LIST changes: +IBUPROFEN800 M1 PO; +PREDNISONE50 M1 PO
--- NOTE | 2018-02-28 19:25 | ED GENERAL ADULT ---
History of Present Illness General Chief Complaint: General Adult Stated Complaint: ?OVERDOSE Source: EMS Exam Limitations: unable to give history, intoxication Vital Signs & Intake/Output Vital Signs & Intake/Output Vital Signs Date Time Temp Pulse Resp B/P B/P Pulse O2 O2 Flow FiO2 Mean Ox Delivery Rate 02/287 93 Nasal 4.0L Cannula 02/29 2332 98.0 77 16 136/78 02/289 Nasal 4.0L Cannula 02/284 98.5 76 10 132/73 98 Nasal 4.0L Cannula 02/29 2036 98.5 89 12 154/80 99 Nasal 4.0L Cannula 02/28 2015 98.5 83 10 140/76 95 Room Air 4.0L 02/28 1850 100 Non 100% ReBreather 02/28 1837 95.9 111 18 157/89 98 Non 100% ReBreather 02/28 183 69 Room Air Allergies Coded Allergies: No Known Allergies (07/17/17) Triage Note: PT BROUGHT IN TO ED BY FRIENDS. ARRIVED UNRESPONSIVE WITH PINPOINT PUPILS AND PERFUSELY DIAPHORETIC. PER FRIENDS PT HAS HX OF USING DRUGS BUT UNKNOWN IF HE HAD TAKEN ANYTHING. O2 SAT 69% ON RA. PT TAKEN IMMEDIATELY TO ROOM 11 WITH AT BEDSIDE. Triage Nurses Notes Reviewed? yes Onset: Abrupt Duration: unknown duration Timing: unknown HPI: 02/28/18 The patient was seen on arrival. He is a 27-year-old male who presented to the emergency department after a drug overdose. The patient had an oxygen saturation in the 60s. He was immediately put on oxygen and brought into room # 11. A left external jugular vein catheterization was performed by me, and 0.8 mg of Narcan was given. The patient awoke. He was awake alert oriented 3. He stated that he snorted 2 bags of heroin and used some cocaine today. He denied any suicidal ideation. He was placed on a 4 hour watch. He was put on a laborer orchard. Labs and a chest x-ray were ordered. Crisis consultation was requested. (Miguel JENKINS,Sandip Gordon) Reconcile Medications Naloxone HCl (Narcan) 4 MG/ACTUATION SPRAY 1 SPRAY IN X1 PRN NARCOTIC OVERDOSE CALL 911 IF YOU ADMINISTER NARCAN. (Vladimir CONLEY,Medardo Stroud) Past History Travel History Traveled to [place] past 21 day No Medical History Any Pertinent Medical History? 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 No (Sandip Rivera DO) Review of Systems Review of Systems Constitutional: Denies: fever. EENTM: Reports: no symptoms. Respiratory: Reports: see HPI. Cardiovascular: Reports: no symptoms. GI: Reports: no symptoms. Genitourinary: Reports: no symptoms. Musculoskeletal: Reports: no symptoms. Skin: Reports: no symptoms. Neurological/Psychological: Reports: see HPI. Hematologic/Endocrine: Reports: no symptoms. Immunologic/Allergic: Reports: no symptoms. (Sandip Rivera DO) Physical Exam Physical Exam General Appearance: severe distress Head: atraumatic Ears, Nose, Throat: normal pharynx Neck: supple Respiratory: decreased breath sounds Cardiovascular: regular rate/rhythm (bradycardia) Peripheral Pulses: 4+ radial (R), 4+ radial (L) Gastrointestinal: non-tender Back: decreased range of motion Extremities: no edema Neurologic/Psych: unresponsive initially Skin: intact, normal color, warm/dry Core Measures ACS in differential dx? No CVA/TIA Diagnosis: No Sepsis Present: No Sepsis Focused Exam Completed? No (Sandip Rivera DO) Progress Differential Diagnoses I considered the following diagnoses in my evaluation of the patient: [Opiod overdose, adverse drug interaction, ] Plan of Care: Orders Procedure Date/time Status Nothing by Mouth 03/01 B Active TROPONIN LEVEL 03/01 0700 Active EKG 03/01 0700 Active TROPONIN LEVEL 03/01 0100 Active EKG 03/01 0100 Active Weight 02/28 2328 Active Vital Signs 02/29 2328 Complete Teach/Educate 02/29 2328 Active Pain Treatment and Response 02/29 2328 Active Nutritional Intake, Monitor 02/29 2328 Active Isolation 06/15 2328 Active Intake & Output 02/28 2328 Complete Patient Care Conference 02/28 232 Active Activity/Ambulation 02/28 232 Active LOWER RESPIRATORY CULTURE 02/28 2244 Active BLOOD CULTURE 02/28 224 Active Patient Data 02/28 2227 Active Patient Data 02/28 222 Active Saline Lock 02/29 2148 Active Misc Message 02/29 2148 Active ED Holding Orders 02/29 2148 Active Admit to inpatient 02/29 2148 Active Vital Signs 02/29 2148 Active Code Status 02/29 2148 Active Lab Add-on Test 02/28 2025 Active Telemetry/Miner Assistant 02/28 185 Active ETHANOL 02/28 185 Active COMPREHENSIVE METABOLIC PANEL 02/28 185 Active CBC WITHOUT DIFFERENTIAL 02/29 1856 Complete EKG 02/29 1856 Active URINE DRUG SCREEN FOR ER ONLY 02/28 1853 Complete EKG 02/28 185 Active TROPONIN LEVEL 02/28 185 Active PHOSPHORUS 02/28 185 Active MAGNESIUM 02/28 185 Active Intake & Output 02/28 1849 Active Lab Add-on Test 02/28 UNK Active Laboratory Tests 02/28/18 185: Methadone Screen Cancelled, Barbiturate Screen Cancelled, Ur Phencyclidine Scrn Cancelled, Amphetamines Screen Cancelled, U Benzodiazepines Scrn Cancelled, Urine Cocaine Screen Cancelled, Urine Cannabis Screen Cancelled 02/28/18 1850: Serum Alcohol < 10.0 02/28/18 185: Anion Gap 14, Estimated GFR > 60, BUN/Creatinine Ratio 17.0, Glucose 242 H, Calcium 9.0, Phosphorus Pending, Magnesium Pending, Total Bilirubin 0.4, AST 41, ALT 29, Alkaline Phosphatase 71, Troponin I 0.19 *H, Total Protein 7.5, Albumin 4.5, Globulin 3.0, Albumin/Globulin Ratio 1.5, CBC w Diff MAN DIFF ORDERED, RBC 4.82, MCV 87.2, MCH 29.7, MCHC 34.1, RDW 14.3, MPV 7.7, Gran % 72.8, Lymphocytes % 15.8 L, Monocytes % 9.2, Eosinophils % 1.8, Basophils % 0.4, Absolute Granulocytes 12.1 H, Segmented Neutrophils 77 H, Band Neutrophils 1, Absolute Lymphocytes 2.6, Lymphocytes 15 L, Monocytes 5, Absolute Monocytes 1.5 H, Eosinophils 1, Absolute Eosinophils 0.3, Basophils 1, Absolute Basophils 0.1, Platelet Estimate VERIFIED BY SMEAR, Normocytic RBCs VERIFIED, Normochromic RBCs VERIFIED, Fld Total RBCs Counted 100, Urine Opiates Screen > 4000.00 H, Methadone Screen < 40, Barbiturate Screen < 60, Ur Phencyclidine Scrn < 6.00, Amphetamines Screen 176, U Benzodiazepines Scrn 377 H, Urine Cocaine Screen > 1000 H, Urine Cannabis Screen 78.40 H Microbiology 02/29 2244 LOWER RESP: Respiratory Culture - ORD 02/29 2244 LOWER RESP: Gram Stain - ORD 02/28 2243 BLOOD: Blood Culture - ORD 02/28 2243 BLOOD: Blood Culture - ORD Initial ED EKG: NSR, borderline QT prolongation (Sandip Rivera DO) Differential Diagnoses I considered the following diagnoses in my evaluation of the patient: opioid overdose vs other. (You ELIZONDO,Jaime) Departure Departure Disposition: STILL A PATIENT Condition: Stable Referrals: Patient Has No Primary Care Dr (PCP/Family) Additional Instructions: The patient was signed out to Dr. Gilbert at 7 PM. Observation on a monitor. Crisis consultation. Follow the labs and x-ray. Departure Forms: Customer Survey General Discharge Information Prescriptions: Current Visit Scripts Naloxone HCl (Narcan) 1 SPRAY IN X1 PRN NARCOTIC OVERDOSE #1 SPRAY Ref 2 CALL 911 IF YOU ADMINISTER NARCAN. Comments PATIENT: CHAVEZ GONZALEZ PRESENT AGE: 27 PATIENT ACCOUNT NO: [id number] : 91 LOCATION: [facility] ORDERING PHYSICIAN: Sandip Rivera DO SERVICE DATE: 02/28/18 EXAM TYPE: RAD - XRY-PORTABLE CHEST XRAY EXAMINATION: XR PORTABLE CHEST CLINICAL INFORMATION: Status post OD. COMPARISON: None TECHNIQUE: Portable frontal view of the chest was obtained. FINDINGS: Multiple external artifacts overlie the thorax. The cardiomediastinal silhouette is normal in appearance. No effusions or pneumothoraces are identified. Mild airspace type opacity is are present in the right lung base. No gross skeletal abnormalities are identified. IMPRESSION: 1. Mild right base airspace opacities which may represent atelectasis or aspiration pneumonitis. DICTATED BY: Jhonatan Rodrigues MD DATE/TIME DICTATED:02/28/181949 DIVERSIFIED CROPS SUPERVISOR:ZARINA DATE/TIME TRANSCRIBED:02/28/181949 CONFIDENTIAL, DO NOT COPY WITHOUT APPROPRIATE AUTHORIZATION. <Electronically signed in Other Vendor System> SIGNED BY: Jhonatan Rodrigues MD 02/28/181955 (Sandip Rivera DO) Admission Note Documentation of Exam: Documentation of any treatments & extenuating circumstances including Concerns Regarding Discharge (functional status, medication knowledge or non-compliance, living conditions, etc.) that warrant an admission rather than observation: 02/28/18, 22:28.... discussed with dr. link, pt merits admission, serial trops, ekgs, cards eval in am. (You ELIZONDO,Jaime) Departure Clinical Impression Primary Impression: Drug overdose Secondary Impressions: Elevated troponin I level, Polysubstance abuse Admission Note Spoke With: Sarahi Macias MD Documentation of Exam: Documentation of any treatments & extenuating circumstances including Concerns Regarding Discharge (functional status, medication knowledge or non-compliance, living conditions, etc.) that warrant an admission rather than observation: 02/28/18, 22:28.... discussed with dr. link, pt merits admission, serial trops, ekgs, cards eval in am. (of note, mr. romero did not discuss with dr. link, entry above entered in error. ) pt to be admitted to hospitalist. (Vladimir CONLEY,Medardo Stroud) Critical Care Note Critical Care Note Critical Care Time: 30-74 min (Sandip Rivera DO)
[2018-02-28 19:26] LABS: ABSOLUTE BASOPHIL COUNT 0.1 /CUMM (0.0-0.2); ABSOLUTE EOSINOPHIL COUNT 0.3 /CUMM (0.0-0.7); ABSOLUTE GRANULOCYTE CT 12.1 /CUMM (1.4-6.5); ABSOLUTE LYMPH COUNT 2.6 /CUMM (1.2-3.4); ABSOLUTE MONOCYTE COUNT 1.5 /CUMM (0.10-0.60); BASOPHIL % 0.4 % (0.0-2.0); EOSINOPHIL % 1.8 % (0-5); GRANULOCYTE % 72.8 % (42.2-75.2); MEAN CORPUSCULAR HGB 29.7 PG (27.0-31.0); MEAN CORPUSCULAR HGB CONC 34.1 G/DL (33.0-37.0); MEAN CORPUSCULAR VOLUME 87.2 FL (80.0-94.0); MEAN PLATELET VOLUME 7.7 FL (7.4-10.4); PLATELET COUNT 316 /CUMM (130-400); RBC DISTRIBUTION WIDTH 14.3 % (11.5-14.5); RED BLOOD CELL CT 4.82 /CUMM (4.70-6.10); WHITE BLOOD CELL COUNT 16.7 /CUMM (4.8-10.8)
[2018-02-28] MEDS ORDERED: NARCAN4 MG IN ×2 (19:50→20:14)
--- NOTE | 2018-02-28 19:56 | RADIOLOGY REPORT ---
EXAMINATION: XR PORTABLE CHEST CLINICAL INFORMATION: Status post OD. COMPARISON: None TECHNIQUE: Portable frontal view of the chest was obtained. FINDINGS: Multiple external artifacts overlie the thorax. The cardiomediastinal silhouette is normal in appearance. No effusions or pneumothoraces are identified. Mild airspace type opacity is are present in the right lung base. No gross skeletal abnormalities are identified. IMPRESSION: 1. Mild right base airspace opacities which may represent atelectasis or aspiration pneumonitis.
--- NOTE | 2018-02-28 22:43 | History & Physical ---
Eliezer CONLEY,[facility] 02/28/18 1871: General Information and HPI MD Statement: I have seen and personally examined CHAVEZ GONZALEZ and documented this H&P. The patient is a 27 year old M who presented with a patient stated chief complaint of [overdose]. Source of Information: patient History of Present Illness: 27 yo M with pmhx of polysubstance abuse last left AMA November 11 brought in by his friends for apparent overdose. The patient states that he use one bag of heroin at 11 AM and then a repeat bag at 5 PM. The patient does not remember how he got to the ED. The patient states that since he had left AMA he went to rehabilitation for 45 days. He then started using substances around January. States that he started with alcohol and then progressed to heroin. States that he has had increased stressors in his life but did not want to talk about. States that he has been seen intensive outpatient psychiatry and therapy but is court related and did not discuss. He states that he drinks 1 pint of vodka daily. States that he smokes 1 pack per day. States that he also smokes marijuana about 3 joints per day. Last used cocaine yesterday. States that he has depression and anxiety. No suicidal ideation currently. He complains of blurry vision. Denies any headaches, cough, chest pain, fevers, abdominal pain, or changes in elimination. In the emergency department the patient was started on a nonrebreather as he was found to be in acute hypoxic failure. Was given Narcan 0.8 mg IV and 0.4 mg IV. Also given full dose aspirin. Pt passed beside swallow at around 1230AM. Allergies/Medications Allergies: Coded Allergies: No Known Allergies (07/17/17) Home Med list Naloxone HCl (Narcan) 4 MG/ACTUATION SPRAY 1 SPRAY IN X1 PRN NARCOTIC OVERDOSE CALL 911 IF YOU ADMINISTER NARCAN. 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 EENTM: Reports: blurred vision. Cardiovascular: Denies: chest pain. Respiratory: Denies: cough, short of breath. GI: Denies: abdominal pain, diarrhea, nausea, vomiting. Exam & Diagnostic Data Last 24 Hrs of Vital Signs/I&O Vital Signs Date Time Temp Pulse Resp B/P B/P Pulse O2 O2 Flow FiO2 Mean Ox Delivery Rate 02/28 2337 93 Nasal 4.0L Cannula 02/28 2332 98.0 77 16 136/78 02/289 Nasal 4.0L Cannula 02/284 98.5 76 10 132/73 98 Nasal 4.0L Cannula 02/29 2036 98.5 89 12 154/80 99 Nasal 4.0L Cannula 02/28 2015 98.5 83 10 140/76 95 Room Air 4.0L 02/28 185 100 Non 100% ReBreather 02/28 1837 95.9 111 18 157/89 98 Non 100% ReBreather 02/28 1831 69 Room Air Intake & Output 03/01 0800 03/01 0000 02/28 1600 Intake Total 0 Output Total 200 Balance -200 Intake, Oral 0 Output, Urine 200 Patient 193 lb Weight Weight Bed scale Measurement Method Physical Exam General Appearance Alert, Oriented X3, drowsy but arousable HEENT tongue exocriations Cardiovascular hyperdynamic sounds Lungs diffuse intermittent wheezing Abdomen tender to palpation in r lateral mid abd Extremities 2+ radial pulses Last 24 Hrs of Labs/Tobias: Laboratory Tests 03/01/18 0020: Troponin I 0.19 *H 02/28/181855: Methadone Screen Cancelled, Barbiturate Screen Cancelled, Ur Phencyclidine Scrn Cancelled, Amphetamines Screen Cancelled, U Benzodiazepines Scrn Cancelled, Urine Cocaine Screen Cancelled, Urine Cannabis Screen Cancelled 02/28/181849: Serum Alcohol < 10.0 02/28/181849: Anion Gap 14, Estimated GFR > 60, BUN/Creatinine Ratio 17.0, Glucose 242 H, Calcium 9.0, Phosphorus 5.5 H, Magnesium 1.8, Total Bilirubin 0.4, AST 41, ALT 29, Alkaline Phosphatase 71, Troponin I 0.19 *H, Total Protein 7.5, Albumin 4.5, Globulin 3.0, Albumin/Globulin Ratio 1.5, CBC w Diff MAN DIFF ORDERED, RBC 4.82, MCV 87.2, MCH 29.7, MCHC 34.1, RDW 14.3, MPV 7.7, Gran % 72.8, Lymphocytes % 15.8 L, Monocytes % 9.2, Eosinophils % 1.8, Basophils % 0.4, Absolute Granulocytes 12.1 H, Segmented Neutrophils 77 H, Band Neutrophils 1, Absolute Lymphocytes 2.6, Lymphocytes 15 L, Monocytes 5, Absolute Monocytes 1.5 H, Eosinophils 1, Absolute Eosinophils 0.3, Basophils 1, Absolute Basophils 0.1, Platelet Estimate VERIFIED BY SMEAR, Normocytic RBCs VERIFIED, Normochromic RBCs VERIFIED, Fld Total RBCs Counted 100, Urine Opiates Screen > 4000.00 H, Methadone Screen < 40, Barbiturate Screen < 60, Ur Phencyclidine Scrn < 6.00, Amphetamines Screen 176, U Benzodiazepines Scrn 377 H, Urine Cocaine Screen > 1000 H, Urine Cannabis Screen 78.40 H Microbiology 03/01 0020 BLOOD: Blood Culture - RECD 03/01 0000 BLOOD: Blood Culture - RECD 02/29 2244 LOWER RESP: Respiratory Culture - COLB 02/29 2244 LOWER RESP: Gram Stain - COLB Assessment/Plan Assessment: 27 yo M with pmhx of polysubstance abuse last left AMA November 11 brought in by his friends for apparent overdose most likely secondary to heroin. Problem list Overdose most likely secondary to heroin Polysubstance abuse Aspiration pneumonitis Elevated troponins Elevated glucose Hyponatremia/hypokalemia Plan: -Cardiology consult. Echo if requested by cardiology. -Scheduled [facility] protocol -Trend troponins EKG 3. Troponins 0.19x2 -Repeat Accu-Chek for elevated blood glucose -Potassium replenishment as needed -Encourage by mouth intake. Cont banana bag. -Psychiatry, SW consult -Follow-up a.m. chest x-ray for possible aspiration pneumonitis. Follow off antibiotics for now -Follow blood cultures and respiratory cultures -Patient will need a PCP. States that he does not have one #FULL CODE #dvt - ppx heparin sub q As Ranked By This Provider Problem List: 1. Polysubstance abuse 2. Elevated troponin I level Core Measures/Misc (06/02) Acute Coronary Syndrome ACS Diagnosis: No Congestive Heart Failure Congestive Heart Failure Diagnosis No Cerebrovascular Accident CVA/TIA Diagnosis: No VTE (View Protocol) VTE Risk Factors Acute Medical Illness No Mechanical VTE Prophylaxis d/t Other No VTE Pharm Prophylaxis d/t NA PharmProphylax ordered Sepsis (View protocol) Sepsis Present: No If YES complete Sepsis Event Note If YES complete Sepsis Event Note Brunilda Qureshi MD 03/01/18 0220: Core Measures/Misc (06/02) Sepsis (View protocol) If YES complete Sepsis Event Note If YES complete Sepsis Event Note Resident Review Statement Resident Statement: examined this patient, discussed with international affairs vice president, agreed with international affairs vice president, discussed with family, reviewed EMR data (avail), discussed with nursing , discussed with case mgmt, reviewed images, amended to note Other Findings: Patient is a 27 YO M with PMH significant for asthma, polysubstance abuse ( marijuana, cocaine, heroine), active smoking, suicidal ideation presented to [facility] after found to be unresponsive by his friends. He recently got discharged into [facility] for 45 days. Since January he started drinking again along with snorting cocaine/heroine. He usually takes a pint of vodka every day. He took 2 packs of heroin first at 11 AM followed by another at 5 PM. He last took cocaine yesterday. He recalls one episode of vomiting yesterday. Usually smokes 1 pack per day. Vital signs at presentation afebrile, heart rate 51, respiratory rate 18, blood pressure 150/89 mmHg, saturating 69% on room air. Physical examination at presentation is significant for pinpoint pupils however normal by the time of our examination, significant wheezing on lung examination. Hyperdynamic heart sounds. Mildly tender RLQ. Labs did show white count of 16 with bandemia, Na 132, K 3.4, Glucose 242, Mag 1.8. Trop 0.19 --> 0.19, Tox screen did show opiates, Benzo 377, cocaine >1000, cannabis 78. Alcohol <10. Blood cultures requested. Imaging shows penumonitis. EKG - NSR, no ST T wave changes Polysubstance abuse Heroine -- Acute hypoxic respiratory failure Cocaine -- Acute Sympathetic stimulation --> elevated trops Marijuana -- lethargy Admit to telemtry Acute hypoxic respiratory failure Received Narcan IV with improvement. Oxygen supplementation. Wheezing probably secondary to high opiate with histamine release - nebulizers as needed. Monitor respiratory status closely. Elevated troponins Demand from increased sympathetic tone. Serial EKG and troponins. Cardiology consult for further evaluation. Hyperglycemia Probably stress related. Check sugars once again Alcohol withdrawl CIWA scores, Ativan scheduled and as needed. Banana bag. Folic acid/thiamine/ multivitamin. Psych and social work consult. Monitor electrolytes. Aspiration pneumonitis H/o vomiting. CXR consistent with pneumonitis. LRC, blood cultures * Repeat CXR tomorrow. DVT prophylaxis SC heparin code status full code Sarahi Macias 03/01/18 0506: Core Measures/Misc (06/02) Sepsis (View protocol) If YES complete Sepsis Event Note If YES complete Sepsis Event Note Attending MD Review Statement Attending Statement Attending MD Statement: examined this patient, discuss w/resident/PA/TRANSPORTATION PROGRAM DIRECTOR, agreed w/resident/PA/TRANSPORTATION PROGRAM DIRECTOR, reviewed EMR data (avail), reviewed images, amended to note Attending Assessment/Plan: CC: Altered mental status PMH: Asthma, alcohol use, polysubstance abuse Patient was brought in ER by his friend for unresponsiveness. Patient received unresponsive with pinpoint pupil, he was resuscitated with Narcan and responded well. His initial O2 saturations were dropping up to 69% on room air but eventually improved. After waking up patient stated that he took cocaine yesterday and 2 bags of heroine today as recreational use. Denies any suicidal ideation he may have passed out around 5 PM and does not recall anything after that. Nobody available bedside to confirm but ER record does not mention about seizure-like activity. Patient denies any complaint currently including chest pain, chest tightness, palpitation, cough, expectoration, dizziness. Vitals: Temperature 95.9 on arrival improved to 98.5, pulse 83, RR 10, blood pressure 140/76, saturating 95% on 4 L nasal cannula on exam: A O 3, cooperative, no acute distress, neck supple, JVD normal, no lymphadenopathy, mucosa moist, no focal neurological deficit, no dependent edema , no obvious skin rashes or inflammation CVS: S1-S2, RRR. RS: Clear to auscultate bilaterally. Abdomen: Soft, NT, ND, bowel sounds present. CXR: 1. Mild right base airspace opacities which may represent atelectasis or aspiration pneumonitis. Assessment and plan 27-year-old male with history significant for alcohol abuse and polysubstance abuse was brought in ER unresponsive with pinpoint pupils. After Narcan patient was more alert oriented and endorsed cocaine and heroin use as mentioned above. Currently patient asymptomatic but on labs he was found to be positive for troponins. Given his recent cocaine use. Be further monitored on telemetry floor and rule out acute coronary syndrome. There are no acute ECG changes for now. He has significant hyperglycemia, unclear if he has received any dextrose in the process of resuscitation, given by EMS versus he has diabetes or this is stress related. Needs further evaluation. Chest x-ray shows mild airspace opacity and right base, likely pneumonitis we will watch off antibiotics + Toxic encephalopathy secondary to heroine use + Elevated troponin: demand ischemia and cocaine use + Aspiration pneumonitis + Hyperglycemia - Admit to telemetry - Continue scheduled Ativan PO 2 milligram every 8 hours - Continue when necessary Ativan according to CIWA protocol - High-dose thiamine - PO folic acid - Check magnesium and phosphorus, today and tomorrow, replace if low - Serial troponin and ECG - Continue aspirin - Cardiology consult in a.m. - Repeat chest x-ray PA lateral in morning to rule out worsening infiltration - If fasting blood sugar is elevated tomorrow morning labs then check hemoglobin A1c - Seizure precaution - DVT prophylaxis - Adequate pain control
[2018-02-28 23:32] VITALS: BP 136/78
--- NOTE | 2018-03-01 05:07 | Admission Certification ---
Admission Certification Certification Statement - As attending physician, I certify that at the time of - admission, based on clinical presentation, severity of - symptoms, need for further diagnostic testing and - therapeutic interventions, and risk of adverse outcomes - without in-hospital treatment, in my clinical assessment, - this patient requires an acute hospital stay for a minimum - of two nights or longer. I have also considered psychsocial - factors such as support system, advanced age, financial - issues, cognitive issues, and failed out-patient treatments, - past re-admission history, safety of patient, and lack of - compliance as applicable. Specific rationale supporting this admission is: Toxic encephalopathy secondary to recreational heroine overdose, elevated troponin with cocaine use
[2018-03-01 06:48] VITALS: BP 142/80
[2018-03-01 08:27] LABS: ABSOLUTE BASOPHIL COUNT 0 /CUMM (0.0-0.2); ABSOLUTE EOSINOPHIL COUNT 0.3 /CUMM (0.0-0.7); ABSOLUTE MONOCYTE COUNT 0.7 /CUMM (0.10-0.60); BASOPHIL % 0.3 % (0.0-2.0); EOSINOPHIL % 4.4 % (0-5); MEAN CORPUSCULAR HGB 29.5 PG (27.0-31.0)
--- NOTE | 2018-03-01 08:49 | PN- Housestaff ---
See Addendum Subjective Follow-up For: Polysubstance abuse Tele-Events Since Last Visit: Sinus rhythm, 6080 Subjective: Patient was admitted last night. He says he was previously drinking about a pint of vodka a day and use cocaine and 2 bags of heroin. He says he snorts the drugs never injects. He started by using pills when he was a teenager and progressed to heroin. He says that he feels better this morning. He has no chest pain, shortness of breath, abdominal pain, or other complaints. He says that he has a girls birthday libertarian to go to today. Review of Systems Constitutional: Reports: no symptoms. EENTM: Reports: no symptoms. Cardiovascular: Reports: no symptoms. Respiratory: Reports: no symptoms. Gastrointestinal: Reports: no symptoms. Genitourinary: Reports: no symptoms. Musculoskeletal: Reports: no symptoms. Skin: Reports: no symptoms. Neurological/Psychological: Reports: no symptoms. Hematologic/Endocrine: Reports: no symptoms. Immunologic/Allergic: Reports: no symptoms. Objective Last 24 Hrs of Vital Signs/I&O Vital Signs Date Time Temp Pulse Resp B/P B/P Pulse O2 O2 Flow FiO2 Mean Ox Delivery Rate 03/01 0648 98.2 70 18 142/80 98 Nasal 4.0L Cannula 03/01 0400 96 Nasal 4.0L Cannula 03/01 0400 96 Nasal 4.0L Cannula 03/01 0224 98 Nasal 4.0L Cannula 03/01 0200 96 Nasal 4.0L Cannula 02/28 2337 93 Nasal 4.0L Cannula 02/28 2332 98.0 77 16 136/78 02/28 2329 Nasal 4.0L Cannula 02/28 2254 98.5 76 10 132/73 98 Nasal 4.0L Cannula 02/286 98.5 89 12 154/80 99 Nasal 4.0L Cannula 02/28 2015 98.5 83 10 140/76 95 Room Air 4.0L 02/28 1850 100 Non 100% ReBreather 02/28 1837 95.9 111 18 157/89 98 Non 100% ReBreather 02/28 1831 69 Room Air Intake & Output 03/01 1600 03/01 0800 03/01 0000 Intake Total 370 0 Output Total 500 200 Balance -130 -200 Intake, IV 250 Intake, Oral 120 0 Output, Urine 500 200 Patient 87.543 kg Weight Weight Bed scale Measurement Method Physical Exam General Appearance: Oriented X3, Cooperative, No Acute Distress, intermittently falling asleep while talking Cardiovascular: Regular Rate, Normal S1, Normal S2 Lungs: Clear to Auscultation Abdomen: Normal Bowel Sounds, Soft, No Tenderness Extremities: No Edema, Normal Pulses, No Tenderness/Swelling Current Medications: Current Medications Sig/Michi Start time Last Medication Dose Route Stop Time Status Admin Ampicillin Sodium/ 1,500 MG Q6 03/01 06 CAN Sulbactam Sodium IV Sodium Chloride 100 ML Aspirin 81 MG DAILY 03/01 0900 AC 03/01 PO 0823 Aspirin 0 .STK-MED ONE 02/28 2143 DC PO Aspirin 0 .STK-MED ONE 02/29 2140 DC PO Aspirin 325 MG ONCE ONE 02/28 2130 DC 02/28 PO 02/28 Cyanocobalamin/ 1 BAG ONCE ONE 03/01 0030 DC 03/01 Thiamine/Pyridoxine IV 03/01 0829 0217 Sodium Chloride 1,000 ML Enoxaparin Sodium 40 MG DAILY 03/02 0900 SC Folic Acid 1 MG DAILY 03/01 0900 AC 03/01 PO 0823 Heparin Sodium 5,000 UNIT Q8 03/01 0057 AC 03/01 (Porcine) SC 03/01 2300 0645 Lorazepam 2 MG Q6 03/01 0600 DC PO Lorazepam 2 MG Q8 03/01 0600 AC 03/01 PO 0642 Lorazepam 1 MG Q1P PRN 03/01 0030 AC IV Magnesium Oxide 400 MG DAILY 03/01 0900 AC 03/01 PO 03/01 0901 0823 Multivitamins 1 TAB DAILY 03/01 0900 03/01 PO 0823 Naloxone HCl 0.4 MG ONCE ONE 02/28 2045 DC 02/28 IV 02/28 Naloxone HCl 0 .STK-MED ONE 02/28 2029 DC .ROUTE Naloxone HCl 0.8 MG ONCE ONE 02/28 1930 DC 02/28 IV 02/28 Naloxone HCl 0 .STK-MED ONE 02/28 184 DC .ROUTE Potassium Chloride 40 MEQ ONCE ONE 03/01 0030 DC 03/01 PO 03/01 0031 0039 Sodium Chloride 1,000 ML BOLUS ONE 02/28 1900 DC 06/15 IV 02/28 Thiamine HCl 100 MG DAILY 03/01 0900 AC 03/01 PO 0823 Last 24 Hrs of Lab/Tobias Results Last 24 Hrs of Labs/Mics: Laboratory Tests 03/01/18 0702: Troponin I 0.18 *H 03/01/18 0702: Sodium Pending, Potassium Pending, Chloride Pending, Carbon Dioxide Pending, Anion Gap Pending, BUN Pending, Creatinine Pending, BUN/Creatinine Ratio Pending , Glucose Pending, Phosphorus Pending, Magnesium Pending, CBC w Diff Pending, WBC Pending, RBC Pending, Hgb Pending, Hct Pending, MCV Pending, MCH Pending, MCHC Pending, RDW Pending, Plt Count Pending, MPV Pending 03/01/18 0020: Troponin I 0.19 *H 02/28/18 1856: Methadone Screen Cancelled, Barbiturate Screen Cancelled, Ur Phencyclidine Scrn Cancelled, Amphetamines Screen Cancelled, U Benzodiazepines Scrn Cancelled, Urine Cocaine Screen Cancelled, Urine Cannabis Screen Cancelled 02/28/18 1850: Serum Alcohol < 10.0 02/28/18 1850: Anion Gap 14, Estimated GFR > 60, BUN/Creatinine Ratio 17.0, Glucose 242 H, Calcium 9.0, Phosphorus 5.5 H, Magnesium 1.8, Total Bilirubin 0.4, AST 41, ALT 29, Alkaline Phosphatase 71, Troponin I 0.19 *H, Total Protein 7.5, Albumin 4.5, Globulin 3.0, Albumin/Globulin Ratio 1.5, CBC w Diff MAN DIFF ORDERED, RBC 4.82, MCV 87.2, MCH 29.7, MCHC 34.1, RDW 14.3, MPV 7.7, Gran % 72.8, Lymphocytes % 15.8 L, Monocytes % 9.2, Eosinophils % 1.8, Basophils % 0.4, Absolute Granulocytes 12.1 H, Segmented Neutrophils 77 H, Band Neutrophils 1, Absolute Lymphocytes 2.6, Lymphocytes 15 L, Monocytes 5, Absolute Monocytes 1.5 H, Eosinophils 1, Absolute Eosinophils 0.3, Basophils 1, Absolute Basophils 0.1, Platelet Estimate VERIFIED BY SMEAR, Normocytic RBCs VERIFIED, Normochromic RBCs VERIFIED, Fld Total RBCs Counted 100, Urine Opiates Screen > 4000.00 H, Methadone Screen < 40, Barbiturate Screen < 60, Ur Phencyclidine Scrn < 6.00, Amphetamines Screen 176, U Benzodiazepines Scrn 377 H, Urine Cocaine Screen > 1000 H, Urine Cannabis Screen 78.40 H Microbiology 03/01 0020 BLOOD: Blood Culture - RECD 03/01 0000 BLOOD: Blood Culture - RECD 02/28 2244 LOWER RESP: Respiratory Culture - COLB 02/29 2244 LOWER RESP: Gram Stain - COLB Assessment/Plan Assessment: Mr. Watts is a 27-year-old male with history significant for alcohol abuse and polysubstance abuse was brought in ER unresponsive with pinpoint pupils. Problem list: 1. Toxic encephalopathy secondary to polysubstance abuse 2. Elevated troponins 3. Hyperglycemia 4. Possible aspiration pneumonitis #Toxic encephalopathy secondary to polysubstance abuse: Patient presented obtunded with urine toxicology positive for cannabis, cocaine, opiates, and benzodiazepines. Patient admits to using cocaine and heroin. He also was drinking about 1 pint of vodka per day. His last drink was yesterday. CIWA was 0 overnight and he was dozing this morning, so I think the dose of lorazepam was too high. -Lorazepam 1 mg every 8 hours -CIWA protocol -Alcoholic vitamins -Monitor for opioid withdrawal -CT head #Elevated troponins: His troponin was elevated at 0.19 on arrival. It is since down trended. Likely a type II myocardial infarction in the setting of polysubstance abuse, especially cocaine. -Cardiology consult #Hyperglycemia: Patient's glucose was 242 yesterday on admission. -Repeat glucose today -Hemoglobin A1c if elevated #Possible aspiration pneumonitis: Patient's initial chest x-ray showed possible pneumonitis versus atelectasis. He does not have any pulmonary symptoms or fevers or chills. -Follow-up repeat chest x-ray DVT prophylaxis with enoxaparin Regular diet Full code Problem List: 1. Polysubstance abuse Pain Ratin Pain Location: no Pain Goal: Remain pain free Pain Plan: see a/p Tomorrow's Labs & Rationales: no
[2018-03-01 08:50] LABS: GRANULOCYTE % 56.5 % (42.2-75.2); HEMATOCRIT 37.1 % (42-52); MEAN CORPUSCULAR VOLUME 86.7 FL (80.0-94.0); MEAN PLATELET VOLUME 7.8 FL (7.4-10.4); PLATELET COUNT 202 /CUMM (130-400); RBC DISTRIBUTION WIDTH 14.7 % (11.5-14.5); RED BLOOD CELL CT 4.28 /CUMM (4.70-6.10)
[2018-03-01 09:09] LABS: WHITE BLOOD CELL COUNT 7.1 /CUMM (4.8-10.8)
--- NOTE | 2018-03-01 10:46 | Cons- Cardiology ---
General Information and HPI Consulting Request Date of Consult: 03/01/18 Requested By: Sarahi Macias MD Reason for Consult: Elevated troponin Source of Information: patient, old records History of Present Illness: This is a 27-year-old male with a history of polysubstance abuse who is brought to the emergency room due to decreased responsiveness; per the patient and his friend he was at a constitution party and had decreased mental status after using heroin and cocaine; he also drinks approximately 1 pint of vodka per day. He denied significant chest pain or palpitations. He was initially hypoxic on presenting to the emergency room. He denies feeling short of breath. He did receive Narcan. He denies any history of cardiac pathology. His friend reported that he did not have seizure-like activity. Allergies/Medications Allergies: Coded Allergies: No Known Allergies (07/17/17) Home Med List: Naloxone HCl (Narcan) 4 MG/ACTUATION SPRAY 1 SPRAY IN X1 PRN NARCOTIC OVERDOSE CALL 911 IF YOU ADMINISTER NARCAN. Current Medications: Current Medications Sig/Michi Start time Last Medication Dose Route Stop Time Status Admin Ampicillin Sodium/ 1,500 MG Q6 03/01 0600 CAN Sulbactam Sodium IV Sodium Chloride 100 ML Aspirin 81 MG DAILY 03/01 09 AC 03/01 PO 0823 Aspirin 0 .STK-MED ONE 02/28 2143 DC PO Aspirin 0 .STK-MED ONE 02/28 2140 DC PO Aspirin 325 MG ONCE ONE 02/28 2130 DC 02/28 PO 02/28 2131 2145 Cyanocobalamin/ 1 BAG ONCE ONE 03/01 0030 DC 03/01 Thiamine/Pyridoxine IV 03/01 0829 0217 Sodium Chloride 1,000 ML Enoxaparin Sodium 40 MG DAILY 03/02 0900 AC SC Folic Acid 1 MG DAILY 03/01 0900 AC 03/01 PO 0823 Heparin Sodium 5,000 UNIT Q8 03/01 0057 AC 03/01 (Porcine) SC 03/01 2300 0645 Lorazepam 1 MG Q8 03/01 1400 AC PO Lorazepam 2 MG Q6 03/01 0600 DC PO Lorazepam 2 MG Q8 03/01 0600 DC 03/01 PO 0642 Lorazepam 1 MG Q1P PRN 03/01 0030 AC IV Magnesium Oxide 400 MG DAILY 03/01 0900 DC 03/01 PO 03/01 0901 0823 Multivitamins 1 TAB DAILY 03/01 0900 AC 03/01 PO 0823 Naloxone HCl 0.4 MG ONCE ONE 02/28 2045 DC 02/28 IV 02/28 Naloxone HCl 0 .STK-MED ONE 02/28 2029 DC .ROUTE Naloxone HCl 0.8 MG ONCE ONE 02/28 1930 DC 02/28 IV 02/28 Naloxone HCl 0 .STK-MED ONE 02/28 184 DC .ROUTE Potassium Chloride 40 MEQ ONCE ONE 03/01 0030 DC 03/01 PO 03/01 0031 0039 Sodium Chloride 1,000 ML BOLUS ONE 02/28 1900 DC 02/28 IV 02/28 Thiamine HCl 100 MG DAILY 03/01 09 AC 03/01 PO 0823 Review of Systems Review of Systems: Review of systems as per HPI. The remainder of a 10 point review of systems was reviewed and was otherwise negative. 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 Surgical History Surgical History: non-contributory Psychosocial History Services at Home: None Smoking Status: Current Everyday Smoker Exam & Diagnostic Data Vital Signs and I&O Vital Signs Date Time Temp Pulse Resp B/P B/P Pulse O2 O2 Flow FiO2 Mean Ox Delivery Rate 03/01 1000 96 Room Air 03/01 0956 Nasal 2.0L Cannula 03/01 0800 96 Nasal 2.0L Cannula 03/01 0800 96 Nasal 2.0L Cannula 03/01 0648 98.2 70 18 142/80 98 Nasal 4.0L Cannula 03/01 0400 96 Nasal 4.0L Cannula 03/01 0400 96 Nasal 4.0L Cannula 03/01 0224 98 Nasal 4.0L Cannula 03/01 0200 96 Nasal 4.0L Cannula 02/287 93 Nasal 4.0L Cannula 02/28 233 98.0 77 16 136/78 02/289 Nasal 4.0L Cannula 02/28 2254 98.5 76 10 132/73 98 Nasal 4.0L Cannula 02/29 2036 98.5 89 12 154/80 99 Nasal 4.0L Cannula 02/28 2015 98.5 83 10 140/76 95 Room Air 4.0L 02/28 1850 100 Non 100% ReBreather 02/28 183 95.9 111 18 157/89 98 Non 100% ReBreather 02/28 1831 69 Room Air Intake & Output 03/01 0800 03/01 0000 02/28 1600 02/28 0800 02/28 0000 Intake Total 370 0 Output Total 500 200 Balance -130 -200 Intake, IV 250 Intake, Oral 120 0 Output, Urine 500 200 Patient 193 lb Weight Weight Bed scale Measurement Method Physical Exam: General: no apparent distress. Alert. Eyes: No obvious scleral icterus. HEENT: No jugular venous distention or abnormal jugular venous pulsations. Cardiovascular: Normal intensity S1/S2. PMI not grossly displaced. Respiratory: Lungs clear to auscultation bilaterally. Abdomen: Soft, nontender with no guarding or rebound tenderness. Musculoskeletal: No clubbing or cyanosis noted Skin: warm; tattoos noted Neurologic: No gross focal deficits noted. Lymph: No gross lymphadenopathy. Labs/Tobias Results: Laboratory Tests 03/01 03/01 03/01 0702 0702 0020 Chemistry Sodium (137 - 145 mmol/L) Cancelled 139 Potassium (3.5 - 5.1 mmol/L) Cancelled 4.3 Chloride (98 - 107 mmol/L) Cancelled 101 Carbon Dioxide (22 - 30 mmol/L) Cancelled 31 H Anion Gap (5 - 16) Cancelled 7 BUN (9 - 20 mg/dL) Cancelled 10 Creatinine (0.7 - 1.2 mg/dL) Cancelled 0.8 Estimated GFR (>60 ml/min) > 60 BUN/Creatinine Ratio (7 - 25 %) Cancelled 12.5 Glucose (65 - 99 mg/dL) Cancelled 97 Phosphorus (2.5 - 4.5 mg/dL) Cancelled 3.2 Magnesium (1.6 - 2.3 mg/dL) Cancelled 2.0 Troponin I (<0.11 ng/ml) 0.18 *H 0.19 *H Hematology CBC w Diff NO MAN DIFF REQ WBC (4.8 - 10.8 /CUMM) 7.1 RBC (4.70 - 6.10 /CUMM) 4.28 L Hgb (14.0 - 18.0 G/DL) 12.6 L Hct (42 - 52 %) 37.1 L MCV (80.0 - 94.0 FL) 86.7 MCH (27.0 - 31.0 PG) 29.5 MCHC (33.0 - 37.0 G/DL) 34.0 RDW (11.5 - 14.5 %) 14.7 H Plt Count (130 - 400 /CUMM) 202 MPV (7.4 - 10.4 FL) 7.8 Gran % (42.2 - 75.2 %) 56.5 Lymphocytes % (20.5 - 51.1 %) 28.9 Monocytes % (1.7 - 9.3 %) 9.9 H Eosinophils % (0 - 5 %) 4.4 Basophils % (0.0 - 2.0 %) 0.3 Absolute Granulocytes (1.4 - 6.5 /CUMM) 4.0 Absolute Lymphocytes (1.2 - 3.4 /CUMM) 2.0 Absolute Monocytes (0.10 - 0.60 /CUMM) 0.7 H Absolute Eosinophils (0.0 - 0.7 /CUMM) 0.3 Absolute Basophils (0.0 - 0.2 /CUMM) 0 02/28 02/28 02/28 1856 1850 1850 Chemistry Sodium (137 - 145 mmol/L) 132 L Potassium (3.5 - 5.1 mmol/L) 3.4 L Chloride (98 - 107 mmol/L) 89 L Carbon Dioxide (22 - 30 mmol/L) 29 Anion Gap (5 - 16) 14 BUN (9 - 20 mg/dL) 17 Creatinine (0.7 - 1.2 mg/dL) 1.0 Estimated GFR (>60 ml/min) > 60 BUN/Creatinine Ratio (7 - 25 %) 17.0 Glucose (65 - 99 mg/dL) 242 H Calcium (8.4 - 10.2 mg/dL) 9.0 Phosphorus (2.5 - 4.5 mg/dL) 5.5 H Magnesium (1.6 - 2.3 mg/dL) 1.8 Total Bilirubin (0.2 - 1.3 mg/dL) 0.4 AST (17 - 59 U/L) 41 ALT (21 - 72 U/L) 29 Alkaline Phosphatase (< 127 U/L) 71 Troponin I (<0.11 ng/ml) 0.19 *H Total Protein (6.3 - 8.2 g/dL) 7.5 Albumin (3.5 - 5.0 g/dL) 4.5 Globulin (1.9 - 4.2 gm/dL) 3.0 Albumin/Globulin Ratio (1.1 - 2.2 %) 1.5 Hematology CBC w Diff MAN DIFF ORDERED WBC (4.8 - 10.8 /CUMM) 16.7 H RBC (4.70 - 6.10 /CUMM) 4.82 Hgb (14.0 - 18.0 G/DL) 14.3 Hct (42 - 52 %) 42.0 MCV (80.0 - 94.0 FL) 87.2 MCH (27.0 - 31.0 PG) 29.7 MCHC (33.0 - 37.0 G/DL) 34.1 RDW (11.5 - 14.5 %) 14.3 Plt Count (130 - 400 /CUMM) 316 MPV (7.4 - 10.4 FL) 7.7 Gran % (42.2 - 75.2 %) 72.8 Lymphocytes % (20.5 - 51.1 %) 15.8 L Monocytes % (1.7 - 9.3 %) 9.2 Eosinophils % (0 - 5 %) 1.8 Basophils % (0.0 - 2.0 %) 0.4 Absolute Granulocytes (1.4 - 6.5 /CUMM) 12.1 H Segmented Neutrophils (42.2 - 75.2 %) 77 H Band Neutrophils (0.0 - 5.0 %) 1 Absolute Lymphocytes (1.2 - 3.4 /CUMM) 2.6 Lymphocytes (20.5 - 51.1 %) 15 L Monocytes (1.7 - 9.3 %) 5 Absolute Monocytes (0.10 - 0.60 /CUMM) 1.5 H Eosinophils (0 - 5.0 %) 1 Absolute Eosinophils (0.0 - 0.7 /CUMM) 0.3 Basophils (0.0 - 2.0 %) 1 Absolute Basophils (0.0 - 0.2 /CUMM) 0.1 Platelet Estimate (ADEQUATE) VERIFIED BY SMEAR Normocytic RBCs VERIFIED Normochromic RBCs VERIFIED Other Body Source Fld Total RBCs Counted (%) 100 Toxicology Urine Opiates Screen (>2000 NG/ML) > 4000.00 H Methadone Screen (>300 NG/ML) Cancelled < 40 Barbiturate Screen (>200 NG/ML) Cancelled < 60 Ur Phencyclidine Scrn (>25 NG/ML) Cancelled < 6.00 Amphetamines Screen (>1000 NG/ML) Cancelled 176 U Benzodiazepines Scrn (>200 NG/ML) Cancelled 377 H Urine Cocaine Screen (>300 NG/ML) Cancelled > 1000 H Urine Cannabis Screen (>50 NG/ML) Cancelled 78.40 H Serum Alcohol (<10 MG/DL) < 10.0 Diagnostic Data EKG Results Tracing was personally reviewed and shows sinus rhythm at 71 bpm with a possible early repolarization pattern CXR Results 1. Mild right base airspace opacities which may represent atelectasis or aspiration pneumonitis. Other Results Telemetry tracings were personally reviewed and shows sinus rhythm Assessment/Plan Assessment/Plan 1. Polysubstance abuse including heroin/cocaine/alcohol 2. Minimally elevated troponin likely due to polysubstance abuse 3. Possible aspiration pneumonitis The patient's minimal troponin elevation with flat troponin curve is likely due to his intoxication from poly-substance abuse which did include both heroin and cocaine; he denies taking anything intravenously. Agree with following his pneumonitis off antibiotics as his leukocytosis has improved and he is afebrile. Would obtain an echocardiogram and monitor on telemetry for 24 hours. Critical importance of substance abuse cessation was discussed. If no significant pathology noted on telemetry or by echocardiogram no further inpatient cardiac workup will be required. [facility] protocol per the medical team. Ahsan El MD [facility] Consult Acknowledgment - Thank you for your consult request.
--- NOTE | 2018-03-01 12:27 | CT SCAN REPORT ---
EXAMINATION: CT HEAD WITHOUT CONTRAST CLINICAL INFORMATION: Toxic encephalopathy. COMPARISON: 07/01/15. 07/28/11. TECHNIQUE: Contiguous axial imaging was performed from the skull base to vertex without intravenous administration of contrast. DLP: 555.35 mGy-cm FINDINGS: There is no evidence of acute intracranial hemorrhage or territorial infarction. No abnormal mass effect or midline shift is seen. Strong to white matter differentiation is well preserved. No extra-axial fluid collections are identified. The ventricles are normal in size. There is no abnormal attenuation within the brain parenchyma. The osseous structures and soft tissues are normal. Mucosal thickening is evident in the ethmoid air cells bilaterally as well as the left frontal sinus and sphenoid sinus. The middle ears and mastoids are clear. IMPRESSION: No acute intracranial pathology. Nonspecific paranasal sinus disease.
--- NOTE | 2018-03-01 12:40 | RADIOLOGY REPORT ---
EXAMINATION: XR CHEST CLINICAL INFORMATION: Vomiting. Concern for aspiration. COMPARISON: 02/28/18. TECHNIQUE: 2 views of the chest were obtained. FINDINGS: No significant abnormality is noted involving the heart, lungs, mediastinum, bony thorax or soft tissues. No evidence for aspiration or pneumonia. Basilar opacity seen in the right on the prior examination is resolved. IMPRESSION: Unremarkable examination.
[2018-03-01] MEDS ORDERED: ONE DAILY MULT1 EAC2 PO (13:52)
[2018-03-01] MEDS ORDERED: NARCAN4 MG IN (13:52)
[2018-03-01] MEDS ORDERED: ASPIRIN81 M4 PO (13:52)
--- NOTE | 2018-03-01 13:54 | Patient Discharge Instructions ---
Discharge Instructions General Discharge Information You were seen/treated for: Overdose of heroin, cocaine. Alcohol abuse and withdrawal. Type II myocardial infarction. Watch for these problems: Fever, chest pain, shortness of breath Special Instructions: Please take all medications as directed. Please do not use recreational drugs. Please follow up with primary care. Diet Continue normal diet: Yes Activity Full Activity/No Limits: Yes Acute Coronary Syndrome Inclusion Criteria At DC or during hospital stay patient has or had the following: ACS DIAGNOSIS No Discharge Core Measures Meds if any: Prescribed or Continued at Discharge Meds if any: NOT Prescribed or Continued at Discharge Congestive Heart Failure Inclusion Criteria At DC or during hospital stay patient has or had the following: CHF DIAGNOSIS No Discharge Core Measures Meds if any: Prescribed or Continued at Discharge Meds if any: NOT Prescribed or Continued at Discharge Cerebrovascular accident Inclusion Criteria At DC or during hospital stay patient has or had the following: CVA/TIA Diagnosis No Discharge Core Measures Meds if any: Prescribed or Continued at Discharge Meds if any: NOT Prescribed or Continued at Discharge Venous thromboembolism Inclusion Criteria VTE Diagnosis No VTE Type NONE VTE Confirmed by (Test) NONE Discharge Core Measures - Per Current guidelines, there needs to be overlap - treatment for the first 5 days of Warfarin therapy. - If discharged on Warfarin prior to 5 days of - overlap therapy, the patient will need to be - assessed for post discharge needs including - *Post discharge parental anticoagulation - *Warfarin and/or parental anticoagulation education - *Follow up date to check INR post discharge At least 5 days overlap therapy as Inpatient No Meds if any: Prescribed or Continued at Discharge Note: Overlap Therapy is Warfarin and Anticoagulant Meds if any: NOT Prescribed or Continued at Discharge
--- NOTE | 2018-03-01 14:17 | Discharge Summary ---
Visit Information Visit Dates Admission Date: 02/28/18 Discharge Date: 03/01/18 Hospital Course Course Attending Physician: Sarahi Macias MD Primary Care Physician: Patient Has No Primary Care Dr Hospital Course: Mr. Watts is a 27-year-old male with history significant for alcohol abuse and polysubstance abuse was brought in ER unresponsive with pinpoint pupils. He was admitted to telemetry and treated for the following problems: 1. Toxic encephalopathy secondary to polysubstance abuse 2. Elevated troponins 3. Hyperglycemia 4. Rule out aspiration pneumonitis #Toxic encephalopathy secondary to polysubstance abuse: Patient presented obtunded with urine toxicology positive for cannabis, cocaine, opiates, and benzodiazepines. Patient admits to using cocaine and heroin, snorting but never injecting. He also was drinking about 1 pint of vodka per day. His last drink was yesterday. He was started on CIWA protocol and a standing dose of lorazepam and given alcoholic vitamins. CT head was performed that was negative for any acute intracranial process but did show paranasal sinus disease likely from snorting substances. The patient was advised to stay in the hospital for further treatment but he decided to leave AGAINST MEDICAL ADVICE. The full risks of doing so including withdrawal seizures, deterioration of his medical conditions, and were fully explained and the patient was able to verbalize and understand these risks. He was given a prescription for naloxone and follow -up with primary care. #Elevated troponins: His troponin was elevated at 0.19 on arrival. It is since down trended. Likely a type II myocardial infarction in the setting of polysubstance abuse, especially cocaine. Cardiology evaluated and agrees that this is likely secondary to polysubstance abuse. He is given a prescription for aspirin. #Hyperglycemia: Patient's glucose was 242 on admission. This normalized on subsequent check. #Rule out aspiration pneumonitis: Patient's initial chest x-ray showed possible pneumonitis versus atelectasis. He does not have any pulmonary symptoms or fevers or chills. Follow-up chest x-ray did not show any signs of pneumonitis and he had no antibiotic treatment. Allergies: Coded Allergies: No Known Allergies (07/17/17) Disposition Summary Disposition Principal Diagnosis: 1. Toxic encephalopathy secondary to polysubstance abuse Additional Diagnosis: 2. Elevated troponins 3. Hyperglycemia 4. Rule out aspiration pneumonitis Discharge Disposition: left against medical adv Discharge Instructions General Discharge Information Code Status: Full Code Patient's Diet: Regular diet Patient's Activity: As tolerated Follow-Up Instructions/Appts: Please take all medications as directed. Please avoid all recreational drugs. Please follow-up with primary care. Medications at Discharge Discharge Medications: Start taking the following new medications: Naloxone HCl (Narcan) 4 MG/ACTUATION SPRAY 1 Inez IN VITRO X1 as needed for NARCOTIC OVERDOSE Qty = 1 Refills = 2 Instructions: CALL 911 IF YOU ADMINISTER NARCAN Aspirin (Aspirin*) 81 MG TAB.CHEW 81 Milligram ORAL DAILY Qty = 30 No Refills Comments: Last Taken: 03/01/18 Time: 0830 AM Multivitamin (One Daily Multivitamin) 1 EACH TABLET 1 Tablet ORAL DAILY Qty = 30 No Refills Comments: Last Taken: 03/01/18 Time: 0830 AM Copies To: Melvin CONLEY,Cyndi El MD,Félix Richards MD Review Statement Documenting Attending: Link Espinoza MD Other Findings: Patient left against medical advice.
--- NOTE | 2018-03-01 16:44 | Cons- Psychiatry ---
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 He was treated in the ED with narcan and admitted to the medicine service. There he was found to have a troponin elevation. His UDS was positive for opiates, cocaine, benzodiazepines, and cannabis. He requested to leave [place] this afternoon immediately prior to my interview. This patient is known to me from a consultation earlier this year. He reports he sniffed a bag of heroin earlier yesterday and then again yesterday evening. He adamantly denies trying to kill himself. Reports that he does not frequently use opiates and "this must have been too much". He reports wanting to leave the hospital to attend a niece's birthday constitution party who is very important to him. Drinks a pint of liquor daily. Snorts cocaine on frequent basis. REports being currently involved with [facility] where he attends their IOP (says this is 3 days per week, 3 hours per day). Denies recent depressed mood, manic or psychotic symptoms, or thoughts about killing himself or others. He demonstrates an understanding of the medical team' s concern, including noting that the team desires to continue to observe him to make sure he is adequately convalescing. He appreciates the risks of leaving, and cites the risk of , risk of seizure (2/2 alcohol withdrawal), and risk of relapse and associated morbidities. He has made a choice to leave and rationalizes this choice that he feels it is important he attend his niece's birthday constitution party. I spoke with his friend who accompanied Cecil, with Cecil's permission. This friend is the same friend who was with him when he overdosed. She adamantly denied that Armin had made any statements about harming himself and does not believe that he wants to kill himself. Does not believe his opiate overdose yesterday was a suicide attempt. MSE: adequately groomed CM, heavily tattooed, bandage where jugular catheter was , non tremulous, cooperative, fair eye contact, speech wnl. Mood "fine", affect somewhat irritable, mildly labile. TP was logical and linear. Content without suicidal or homicidal ideation. Denies percept disturbance. Cognition: alert, oriented to name, date, hospital, immediate and delayed recall intact, naming and repetition intact. As noted above, his insight into his substanc euse disorder is fair. His judgement is marginal however as noted above it can be justified. Labs and studies reviewed. Assessment: 27 y/o man with severe alcohol, cocaine, and opiate use disorders presenting s/p opiate overdose. There is no evidence from either the patient or collateral who was with him at time of overdose that the patient intended to harm himself. He demonstrates he is future oriented, including a desire to attend the birthday constitution party of a relative and remain present in her life. He does not have access to firearms. He is able to understand and appreicate the risks of his leaving the hospital against medical advise. He rationalizes a choice and has maintained this choice consistently this afternoon. His substance use disorders place him at chronically increased risk of harm and , however, I find no evidence of a current psychiatric disabilty with accompanying imminent risk to himself or others. He is clearly not gravely disabled. We can best mitigate his risk moving forward by continuing to encourage his participation in outpatient substance abuse treatment and possession of narcan. Recommendations -Does not require inpatient psychiatric hospitalization -This patient appears to possess capacity to decide to leave the hospital against medical advice -He was encouraged to continue followup at [facility] -Encouraged to return to the hospital or call EMS if having thoughts of harming self/others -Inpatient medicine service has prescribed a narcan kit for this patient -With the patient's permission I discussed the importance of a narcan kit for Cecil with his friend who he will be leaving the hospital with this afternoon -Above recommendaitons communicated to inpatient medicine serve Thank you for this consult.
== END 2018-03-01 14:30 | disposition left against medical advice (07) | DRG 816 ==
LOC: ERH 18:31 → ERHI 21:48 → 1NO 21:48 → ENRESERV 22:48 → 1NO 23:09
PROVIDERS: Emergency Medicine
DX: T40.1X1A Poisoning by heroin, accidental (unintentional), initial encounter (principal); G92 Toxic encephalopathy; Z53.21 Procedure and treatment not carried out due to patient leaving prior to being seen by health care provider; F10.10 Alcohol abuse, uncomplicated; F12.10 Cannabis abuse, uncomplicated; F32.9 Major depressive disorder, single episode, unspecified; F41.9 Anxiety disorder, unspecified; F17.210 Nicotine dependence, cigarettes, uncomplicated; J45.909 Unspecified asthma, uncomplicated; R73.9 Hyperglycemia, unspecified
CPT/HCPCS: 1NP; 36415; 36592; 71045; 71046; 80307; 82436; 87040; 87070; 93005; 93010; 96374; 96376; 99291; G0480; J1644; J1650; J2310; J3490